=== PATIENT | male | born 1950 | race Caucasian/White ===

== ENCOUNTER → 2017-03-29 | Outpatient (CLI) | payer MEDICARE ==
--- NOTE | 2017-03-29 16:23 | KCIC ---
MRI Cervical Spine Without Contrast History: Cervical radiculopathy on the left, left-sided arm weakness and numbness since November Technique: Multiplanar, multi sequential noncontrast MR imaging was performed of the cervical spine. Comparison: None Findings: There is motion degradation, limits accurate evaluation of the neural foramina. There is mild superior height loss at C5 and very mild generalized height loss of C6 not associated with significant marrow edema. There is straightening of the cervical spine with very mild reversal of the lordotic curvature centered at C5-C6. Cervical cord caliber is within normal limits without focal signal abnormality allowing for artifact. There is moderate to severe degenerative disc disease greater anteriorly at C5-C6, to a somewhat lesser degree at C6-7. There is negligible posterior subluxation of C5 relative to C6. C2-C3: There is mild left uncovertebral and facet degenerative change with resultant moderate narrowing of the left neural foramen. Spinal canal and right neural foramen are adequate. C3-C4: There is minimal disc osteophyte complex and bulge. Central canal is borderline 10 mm. There is mild facet degenerative change, also mild left uncovertebral degenerative change. There is likely moderate to severe narrowing of the left neural foramen, right neural foramen not significantly narrowed. C4-C5: There is very minimal posterior bulge. Central canal is borderline 10 mm. There is moderate to severe right facet degenerative change. The left neural foramen is overall adequate, likely at least moderate narrowing of the right neural foramen. C5-C6: There is minimal disc osteophyte complex. Central canal is borderline 10 mm. There is moderate bilateral facet degenerative change. There is uncovertebral degenerative change greater on the right. There is likely moderate to severe neural foramina compromise bilaterally. C6-C7: There is minimal disc osteophyte complex and bulge. Central canal is borderline 10 mm. There is uncovertebral degenerative change. There is likely moderate to severe left greater than right neural foramina compromise. C7-T1: Spinal canal is adequate. There is facet degenerative change. Right neural foramen is not obviously narrowed, likely at least mild posterior narrowing of the left neural foramen. Impression: 1. Exam is degraded by motion which limits accurate evaluation of the neural foramina. 2. There is no significant cervical spinal stenosis, multilevel borderline narrowing. 3. There is suspected multilevel cervical neural foramina compromise due to facet and uncovertebral degenerative change greatest on the left at C3-4 and bilaterally at C5-C6 and C6-7, to a lesser degree on the right C4-5 and on the left at C2-3. 4. There is degenerative disc disease greatest at C5-C6 and C6-7, spondylosis at the same levels. Electronically signed by: Thiago Poon MD (03/29/2017 4:19 PM) [id number]
== END | disposition home or self-care (01) ==
LOC: KCIC MRI 15:15
PROVIDERS: ATTEND Family Medicine
DX: M50.123 Cervical disc disorder at C6-C7 level with radiculopathy (principal); M50.122 Cervical disc disorder at C5-C6 level with radiculopathy; M50.121 Cervical disc disorder at C4-C5 level with radiculopathy; M47.892 Other spondylosis, cervical region
CPT/HCPCS: 72141

== ENCOUNTER → 2017-05-19 | Outpatient (CLI) | payer MEDICARE ==
[~2017-05-19] MED LIST: HYDR12.58 PO; IOHEXOL 300 MG/ML 100ML VIAL. IV ONE
--- NOTE | 2017-05-19 10:14 | KCIC ---
MRI Brain without contrast History: TIA, left-sided facial numbness, numbness in left upper extremity, symptoms off and on in recent months Technique: Multiplanar, multisequential noncontrast MR imaging was performed of the brain. Contrast: None Comparison: None Findings: There is mild motion.There is no evidence of an acute infarct or cytotoxic edema. The ventricles, sulci, and cisterns are within normal limits in size and configuration. There is no significant midline shift, mass effect, or focal abnormal extra-axial fluid collection. There is very minimal T2 and FLAIR hyperintense abnormality of the supratentorial periventricular white matter, also some foci of the deep white matter such as of the left powell radiata and left parietal lobe and minimally of the right frontal lobe. There is also focus of mild FLAIR hyperintense signal along the right parietal cortical surface with associated questionable volume loss. There is preservation of the major intracranial flow-voids at the skull base. The mastoid air cells are aerated. The cerebellar tonsils are at the lower limits of normal in location. There is no significant abnormality of the pineal gland or pituitary gland. There is mild bilateral ethmoid air cell mucosal thickening. There is preserved marrow signal of the clivus. Impression: 1. There is no evidence of recent infarct or intracranial mass effect. Minimal T2 and FLAIR hyperintense signal abnormality of the supratentorial white matter is nonspecific, could be due to chronic microvascular ischemic disease. There is a questionable focus of FLAIR hyperintense signal along the right parietal cortical surface, difficult to characterize, some questionable volume loss possibly related to sequela of tiny old infarct. Electronically signed by: Thiago Poon MD (05/19/2017 10:11 AM) [facility]
--- NOTE | 2017-05-19 12:50 | KCIC ---
CTA head and neck History: TIA, left-sided facial numbness, numbness in left upper extremity, symptoms for about 3 months Technique: Noncontrast head CT was performed in correlation with this exam. After bolus of intravenous contrast, volumetric CT data acquisition was acquired of the head and neck. Multiplanar reconstruction images to include MIP and 3-D reconstruction images are submitted. Exposure: One or more of the following individualized dose reduction techniques were utilized for this examination: 1. Automated exposure control 2. Adjustment of the mA and/or kV according to patient size 3. Use of iterative reconstruction technique. Contrast: 95 cc Omnipaque 300 Comparison: None Any determination of stenosis is based on NASCET criteria. CTA head: Findings: There is motion degradation. There is no evidence of acute intracranial hemorrhage, intra-axial mass effect, midline shift. Both vertebral arteries constitute the basilar artery, dominant left vertebral artery. There is visualization of left PICA, not seen on the right. There is visualization of small right AICA, not seen on the left. No significant posterior communicating arteries are visualized. There is probably small anterior communicating artery. There is visualization of the petrous, cavernous, and supraclinoid internal carotid arteries bilaterally. No aneurysm or arteriovenous malformation is identified. Impression: 1. Other visualized intracranial vasculature, no aneurysm or significant stenosis is identified. Right PICA and left AICA are not well visualized on this exam. Neck CTA: Findings: Origins and proximal great vessels are poorly evaluated due to artifact from patient's shoulders. There is also motion degradation. The visualized left common and internal carotid arteries are patent without significant stenosis. There is calcified and noncalcified plaque of the proximal right internal carotid artery with resultant stenosis which is significant on the order of at least 75% luminal diameter reduction. There is multilevel cervical degenerative disc disease, also multilevel cervical facet degenerative change. Impression: 1. Calcified and noncalcified plaque of the proximal right internal carotid artery results in significant stenosis on the order of at least 75% luminal diameter reduction. 2. Proximal great vessels and origins are not accurately evaluated on this exam. Electronically signed by: Thiago Poon MD (05/19/2017 12:46 PM) [facility]
== END | disposition home or self-care (01) ==
LOC: KCIC MRI 09:02
PROVIDERS: ATTEND Neurological Surgery
DX: G45.9 Transient cerebral ischemic attack, unspecified (principal); M50.30 Other cervical disc degeneration, unspecified cervical region; F50.89 Other specified eating disorder
CPT/HCPCS: 70496; 70498; 70551; 82565; Q9967

== ENCOUNTER → 2020-07-09 | Outpatient (CLI) | payer MEDICARE ==
[~2020-07-09] MED LIST changes: -IOHEXOL 300 MG/ML 100ML VIAL. IV ONE
--- NOTE | 2020-07-09 12:45 | CARD ---
MR#: [id number] Date of Study: 07/09/2020 Ordering Physician: ARTI FRANCO, Referring Physician: ARTI FRANCO, Tech: Adali Camejo PATRICIA APPROVED REPORT EXAM: Two-dimensional and M-mode echocardiogram with Doppler and color Doppler. Other Information Quality : Good INDICATION Cardiac Disease: CAD 2D DIMENSIONS RVDd2.6 (2.9-3.5cm)Left Atrium(2D)3.4 (1.6-4.0cm) IVSd0.8 (0.7-1.1cm)Aortic Root(2D)3.0 (2.0-3.7cm) LVDd5.2 (3.9-5.9cm)LVOT Diameter2.1 (1.8-2.4cm) PWd0.9 (0.7-1.1cm)LVDs3.7 (2.5-4.0cm) FS (%) 29.3 %SV72.6 ml LVEF(%)55.8 (>50%) Aortic Valve AoV Peak Con.183.8cm/sAoV VTI30.2cm AO Peak GR.13.5mmHgLVOT Peak Con.117.8cm/s AO Mean GR.6mmHgAVA (VMAX)2.21cm2 GISELLE (VTI)2.70cm2 Mitral Valve MV E Ghxklauc330.8cm/sMV DECEL [id number] MV A Jkhautlw689.9cm/sE/A Ratio0.9 Pulmonary Valve PV Peak Zpfypafp22.6cm/s Tricuspid Valve TR P. Oyqwtonx307yt/sRAP [id number] TR Peak Gr.57dlZrRGRL13rnNn Pulmonary Vein S1 Jitpbfjm07.8cm/sD2 Pparyoqd59.4cm/s LEFT VENTRICLE The left ventricle is normal size. There is normal left ventricular wall thickness. The left ventricu lar systolic function is normal. The Ejection Fraction is 55-60%. There is normal LV segmental wall m otion. Transmitral Doppler flow pattern is Grade I-abnormal relaxation pattern. RIGHT VENTRICLE The right ventricle is normal size. The right ventricular systolic function is normal. ATRIA The left atrium size is normal. The right atrium size is normal. The interatrial septum is intact wit h no evidence for an atrial septal defect or patent foramen ovale as noted on 2-D or Doppler imaging. AORTIC VALVE The aortic valve is normal in structure and function. Doppler and Color Flow revealed no significant aortic regurgitation. There is no significant aortic valvular stenosis. MITRAL VALVE The mitral valve is calcified but opens well. Mitral annular calcification is mild. There is no evide nce of mitral valve prolapse. There is no mitral valve stenosis. Doppler and Color Flow revealed no m itral valve regurgitation noted. TRICUSPID VALVE The tricuspid valve is normal in structure and function. Doppler and Color Flow revealed trace tricus pid regurgitation. There is mild pulmonary hypertension. The PA pressure was estimated at 36 mmHg. Th ere is no tricuspid valve stenosis. PULMONIC VALVE The pulmonic valve is not well visualized. Doppler and Color Flow revealed trace pulmonic valvular re gurgitation. There is no pulmonic valvular stenosis. GREAT VESSELS The aortic root is normal in size. The ascending aorta is mildly dilated at 3.9 cm. The IVC is normal in size and collapses >50% with inspiration. PERICARDIAL EFFUSION There is no evidence of significant pericardial effusion. Critical Notification Critical Value: No <Conclusion> The left ventricular systolic function is normal. The Ejection Fraction is 55-60%. There is normal LV segmental wall motion. Transmitral Doppler flow pattern is Grade I-abnormal relaxation pattern. Trace tricuspid regurgitation. The PA pressure was estimated at 36 mmHg. There is no evidence of significant pericardial effusion. Signed by : Kvng Hill, Electronically Approved : 07/09/2020 12:44:11
== END ==
LOC: ECHO 10:31
PROVIDERS: ATTEND Family Medicine
DX: I07.1 Rheumatic tricuspid insufficiency (principal); I27.20 Pulmonary hypertension, unspecified
CPT/HCPCS: 93306

== ENCOUNTER → 2020-07-21 | Outpatient (CLI) | payer MEDICARE ==
--- NOTE | 2020-07-21 12:51 | RAD ---
Clinical Indications: Dizziness. Carotid endarterectomy on the right on 2017. Exam : Carotid Duplex with Grayscale Ultrasound and Spectral and Color Doppler Analysis: PQRS Compliance Statement - Stenosis calculations for CT, MR and conventional angiography are based upon measurement of the distal ICA diameter in accordance with the NASCET methodology. Stenosis calculations for carotid ultrasound studies are derived from validated velocity criteria which are known to correlate with the NASCET methodology. Comparison study: CT angiogram of the neck of 05/19/2017. Findings: The common, internal and external carotid arteries were examined by grayscale, color and spectral Doppler ultrasound. There is extensive evidence of atherosclerotic disease but no significant stenosis in the visualized vessels. Flow in both vertebral arteries was antegrade and normal. The following are the velocities and ratios in the carotid arteries on both sides: RIGHT ICA PV: 88cm/sec RIGHT CCA PV: 90cm/sec RIGHT ICA ED: 37cm/sec RIGHT IC/CCPV: 0.86 RIGHT VERTEBRAL: antegrade flow RIGHT % STENOSIS: Less than 50 percent LEFT ICA PV: 87cm/sec LEFT CCA PV: 175cm/sec LEFT ICA ED: 27cm/sec LEFT IC/CCPV: Not estimated. LEFT VERTEBRAL: antegrade flow LEFT % STENOSIS: Less than 50 percent <50% ICA Stenosis: PSV < 125cm/s (EDV < 40cm/s; SVR < 2.0) 50-69% ICA Stenosis: PSV < 125-229cm/s (EDV 40-99cm/s; SVR 2.0-3.9) >70% ICA Stenosis: PSV > 230cm/s (EDV >100cm/s; SVR >4.0) Impression: 1. Bilateral atherosclerotic plaque in the carotid arterial system with at least moderate stenosis in the left proximal common carotid artery 2. The high-grade stenosis in the proximal right cervical ICA is no longer present, likely result of interval endarterectomy. Electronically signed by: Brookylnn Lucia MD (07/21/2020 12:48 PM) [id number]
== END ==
LOC: US 09:30
PROVIDERS: ATTEND Family Medicine
DX: I65.23 Occlusion and stenosis of bilateral carotid arteries (principal); R09.89 Other specified symptoms and signs involving the circulatory and respiratory systems; I10 Essential (primary) hypertension; I25.10 Atherosclerotic heart disease of native coronary artery without angina pectoris
CPT/HCPCS: 93880

== ENCOUNTER 2021-06-05 20:02 | Inpatient (IN) | payer MEDICARE ==
[~2021-06-05] VITALS: Ht 175.3 cm; Wt 84.9 kg
--- NOTE | 2021-06-05 20:29 | PHYS DOC ---
General Adult EDM: Chief Complaint: CHEST PAIN HPI: HPI: Patient is a 70 year old male with a past medical history hypertension presents with a chief complaint of chest pain. Patient states chest pain started suddenly approximately 45 minutes prior to arrival while at rest. Patient's pain substernal described as sharp and nonradiating. Patient rates pain an 8 out of 10. He denies any associated shortness of breath nausea or diaphoresis. Patient self treated his pain with 162 mg of aspirin. Patient states pain is improved to a blank out of 10 EKG performed shows no acute MA. Review of Systems: Review of Systems: Constitutional: Denies fever or chills. [] Eyes: Denies change in visual acuity. [] HENT: Denies nasal congestion or sore throat. [] Respiratory: Denies cough or shortness of breath. [] Cardiovascular: Denies chest pain or edema. [] GI: Denies abdominal pain, nausea, vomiting, bloody stools or diarrhea. [] : Denies dysuria. [] Musculoskeletal: Denies back pain or joint pain. [] Integument: Denies rash. [] Neurologic: Denies headache, focal weakness or sensory changes. [] Endocrine: Denies polyuria or polydipsia. [] Lymphatic: Denies swollen glands. [] Psychiatric: Denies depression or anxiety. [] Heart Score: C/O Chest Pain: Yes HEART Score for Chest Pain: HEART Score for Chest Pain Response (Comments) Value History Moderately Suspicious 1 ECG Nonspecific Repolarizatio 1 Age > 65 2 Risk Factors 1 or 2 Risk Factors 1 Troponin < Normal Limit 0 Total 5 Risk Factors: Risk Factors: DM, Current or recent (<one month) smoker, HTN, HLP, family history of CAD, obesity. Risk Scores: Score 0 - 3: 2.5% MACE over next 6 weeks - Discharge Home Score 4 - 6: 20.3% MACE over next 6 weeks - Admit for Clinical Observation Score 7 - 10: 72.7% MACE over next 6 weeks - Early Invasive Strategies Allergies: Allergies: Allergies Coded Allergies Type Severity Reaction Last Updated Verified No Known Drug Allergies 05/19/17 No Physical Exam: PE: Constitutional: Well developed, well nourished, no acute distress, non-toxic appearance. [] HENT: Normocephalic, atraumatic, bilateral external ears normal, oropharynx moist, no oral exudates, nose normal. [] Eyes: PERRLA, EOMI, conjunctiva normal, no discharge. [] Neck: Normal range of motion, no tenderness, supple, no stridor. [] Cardiovascular:Heart rate regular rhythm, no murmur [] Lungs & Thorax: Bilateral breath sounds clear to auscultation [] Abdomen: Bowel sounds normal, soft, no tenderness, no masses, no pulsatile masses. [] Skin: Warm, dry, no erythema, no rash. [] Back: No tenderness, no CVA tenderness. [] Extremities: No tenderness, no cyanosis, no clubbing, ROM intact, no edema. [] Neurologic: Alert and oriented X 3, normal motor function, normal sensory function, no focal deficits noted. [] Psychologic: Affect normal, judgement normal, mood normal. [] EKG: EKG: [] Radiology/Procedures: Radiology/Procedures: [] Impression: Comparisons: None FINDINGS: Heart is mildly enlarged. Pulmonary vessels are within normal limits. Minimal increased interstitial opacities lungs bilaterally. No pleural effusion. IMPRESSION: Minimally increased interstitial opacities can be seen in the setting of mild pulmonary edema or atypical infectious process. Course & Med Decision Making: Course & Med Decision Making Pertinent Labs and Imaging studies reviewed. (See chart for details) []Total ASA 324mg, SL nitro with improvement of pain to 1/10. Admitted to hospitalist with cardiology consult. Jim Disclaimer: Jim Disclaimer: This electronic medical record was generated, in whole or in part, using a voice recognition dictation system. Departure Departure Impression: Primary Impression: Chest pain Disposition: ADMITTED INPATIENT Condition: STABLE Referrals: ARTI FRANCO MD (PCP) MARSHA SON DO Jun 05, 2021 20:29
[2021-06-05 20:34] LABS: BASO # 0.1 x10^3/uL (0.0-0.2); BASO % 1 % (0-3); EOS # 0.1 x10^3/uL (0.0-0.7); EOS % 2 % (0-3); HEMATOCRIT 45.6 % (39.0-53.0); HEMOGLOBIN 15.5 g/dL (13.0-17.5); LYMPH # 2.2 x10^3/uL (1.0-4.8); LYMPH % 30 % (24-48); MEAN CORPUSCULAR HEMOGLOBIN 32 pg (25-35); MEAN CORPUSCULAR HGB CONC 34 g/dL (31-37); MEAN CORPUSCULAR VOLUME 94 fL (79-100); MONO # 1.1 x10^3/uL (0.0-1.1); MONO % 15 % (0-9); NEUT # 3.9 x10^3/uL (1.8-7.7); NEUT % 52 % (31-73); PLATELET COUNT 304 x10^3/uL (140-400); RED BLOOD COUNT 4.85 x10^6/uL (4.30-5.70); WHITE BLOOD COUNT 7.5 x10^3/uL (4.0-11.0)
[2021-06-05 20:41] LABS: CALCIUM 9.1 mg/dL (8.5-10.1); GFR 74.1; POTASSIUM 3.7 mmol/L (3.5-5.1)
[2021-06-05 20:46] LABS: ALBUMIN/GLOBULIN RATIO 1.1 (1.0-1.7); TOTAL BILIRUBIN 0.4 mg/dL (0.2-1.0); TOTAL PROTEIN 7.5 g/dL (6.4-8.2)
--- NOTE | 2021-06-05 20:51 | RAD ---
Exam: Chest one view INDICATION: Chest pain TECHNIQUE: Frontal view of the chest Comparisons: None FINDINGS: Heart is mildly enlarged. Pulmonary vessels are within normal limits. Minimal increased interstitial opacities lungs bilaterally. No pleural effusion. IMPRESSION: Minimally increased interstitial opacities can be seen in the setting of mild pulmonary edema or atyp ical infectious process. Electronically signed by: Tony Rashid MD (06/05/2021 8:48 PM) [id number]
[2021-06-05] MEDS ORDERED: ASPIRIN CHEWABLE 81 MG TABLET. PO ONE (21:00)
[2021-06-05] MEDS ORDERED: NITROGLYCERIN SUBLINGUAL 0.4 MG BOTTLE OF 25. SL PRN ×2 (21:00→22:00)
[2021-06-05] MEDS ORDERED: MORPHINE SULFATE 2 MG/ML INJ. IVP PRN (22:00)
[2021-06-05] MEDS ORDERED: ONDANSETRON PF 4 MG/2 ML VIAL. IVP PRN (22:00)
[2021-06-05 23:27] VITALS: BP 191/100
[2021-06-06] VITALS (7 sets, daily range): BP systolic 140–196; BP diastolic 81–99
[2021-06-06] MEDS ORDERED: HEPARIN for IV BOLUS 10,000 UNIT/10 ML VIAL. IV PRN (01:45)
[2021-06-06] MEDS: HEPARIN 25,000UTS/250ML PREMIX 250 ML IV PRN ×2 (02:42→21:52)
[2021-06-06] MEDS: ANTI-COAG MONITOR BY PHARMACY. MC PRN (03:38)
[2021-06-06] MEDS ORDERED: LISI2.5T12 PO (05:38)
[2021-06-06] MEDS ORDERED: ASPI-630 PO (05:38)
[2021-06-06] MEDS ORDERED: DOCO1CAP2 PO (05:38)
[2021-06-06] MEDS ORDERED: NIAC500C6 PO (05:38)
[2021-06-06] MEDS ORDERED: BIFI4CAP PO (05:38)
[2021-06-06] MEDS ORDERED: MULT-114 PO (05:38)
[2021-06-06] MEDS: OMEGA-3 FATTY ACIDS/FISH OIL 1,000 MG CAPSULE. PO SCH (12:30)
[2021-06-06] MEDS: hydroCHLOROthiazide 12.5 MG CAPSULE PO SCH (12:30)
[2021-06-06] MEDS: MULTIVITAMIN with MINERAL TABLET. PO SCH (12:30)
[2021-06-06] MEDS: LISINOPRIL 5 MG TABLET. PO SCH (12:32)
--- NOTE | 2021-06-06 12:38 | HP ---
ADMIT DATE: 06/06/2021 CHIEF COMPLAINT: Chest pain. HISTORY OF PRESENT ILLNESS: The patient is a pleasant middle-aged male who presented to the ER with chest pain, rates it 10, it has been occurring for several days. Moving makes it worse, sitting still makes it better. He took some aspirin that did not help much. I discussed the case with ER physician. We have admitted the patient, we have consulted Cardiology. The patient's troponin is now bumped up from 0.02 to 6.2 this morning. He appears to have had an acute myocardial infarction. We will have him on a heparin drip. We are awaiting Cardiology input. PAST MEDICAL HISTORY: Hypertension, hyperlipidemia. ALLERGIES: SULFA. FAMILY HISTORY: He denies coronary disease in his family. SOCIAL HISTORY: He does not drink, smoke or take drugs. MEDICATIONS: Reviewed, please refer to MRAD. He is on niacin, lisinopril, aspirin, hydrochlorothiazide, fish oil, vitamins and algin. REVIEW OF SYSTEMS: GENERAL: No history of weight change, weakness or fevers. SKIN: No bruising, hair changes or rashes. EYES: No blurred, double or loss of vision. NOSE AND THROAT: No history of nosebleeds, hoarseness or sore throat. HEART: He complains of chest pain. LUNGS: Denies cough, hemoptysis, wheezing or shortness of breath. GASTROINTESTINAL: Denies changes in appetite, nausea, vomiting, diarrhea or constipation. GENITOURINARY: No history of frequency, urgency, hesitancy or nocturia. NEUROLOGIC: Denies history of numbness, tingling, tremor or weakness. PSYCHIATRIC: No history of panic, anxiety or depression. ENDOCRINE: No history of heat or cold intolerance, polyuria or polydipsia. EXTREMITIES: Denies muscle weakness, joint pain, pain on walking or stiffness. PHYSICAL EXAMINATION: VITALS: Within normal limits and are stable. GENERAL: No apparent distress. Alert and oriented. HEENT: Normal cephalic atraumatic, external auditory canals are patent EYES: Extraocular muscles are intact, pupils are equally round and reactive to light and accommodation MUSKULOSKELETAL: Well developed, well nourished, good range of motion ENDOCRINE: No thyromegaly was palpated LYMPHATICS: No cervical chain or axillary nodes were noted HEMATOPOIETIC: No bruising NECK: Supple, no JVD, no thyromegaly was noted. LUNGS: Clear to auscultation in all lung degroot without rhonchi or wheezing. HEART: RRR, S1, S2 present. Peripheral pulses intact, no obvious murmurs were noted. ABDOMEN: Soft, nontender. Positive bowel sounds no organomegaly, normal bowel sounds. EXTREMITIES: Without any cyanosis, clubbing, or edema. Pedal pulses intact, Homans sign is negative. NEUROLOGIC: Normal speech, normal tone. A and O x 3, moves all extremities, no obvious focal deficits. PSYCHIATRIC: Normal affect, normal mood. Stable. SKIN: No ulcerations or rashes, good skin turgor, no jaundice. VASCULAR: Good capillary refill, neurovascular bundle appears to be intact. Troponin is 6.1. ASSESSMENT AND PLAN: Probable acute myocardial infarction. The patient has been admitted on a heparin drip. We have consultied Cardiology. Suspect he might need to go to the cath lab tech. We will await Cardiology's input. For now, cardiac monitoring. Continue serial enzymes, serial EKGs and heparin drip and p.r.n. nitro. Prognosis guarded. We will keep him n.p.o. CC TIME: 32 minutes. MONICA/JAQUI DR: Josefa TID: [id number]
[2021-06-06] MEDS ORDERED: CLOPIDOGREL BISULFATE 75 MG TABLET PO ONE (16:15)
--- NOTE | 2021-06-06 16:15 | PDOC2 ---
CONSULT Date of Consult Date of Consult DATE: 06/06/21 TIME: 16:08 Reason for Consult Reason for Consult: Chest pain Referring Physician Referring Physician: Dr. Agarwal Identification/Chief Complaint Chief Complaint Chest pain Source Source: Chart review, Patient History of Present Illness Reason for Visit: The patient is a 70-year-old male to the emergency room room last evening for new onset of chest pain at rest. The patient's initial EKG showed no acute ST segment elevation but did show mild nonspecific ST-T wave changes. Initial troponin was 0.022. Chest x-ray showed minimal increased interstitial findings and mild cardiomegaly. The patient's second troponin was mildly elevated at than it peaked at 6.166 but now has decreased to 4.836. Patient was treated with aspirin and IV heparin overnight and he has had no recurrent pain from his initial pain in the emergency room. He does have a history of hypertension and probable hyperlipidemia. He denies any previous history of coronary disease or heart failure. He does have a family history of early coronary disease. He is a non-smoker and does not use alcohol. Past Medical History Cardiovascular: HTN, Hyperlipidemia, Other (Carotid artery disease) Past Surgical History Past Surgical History: Other (Carotid endarterectomy by Dr. Rojas in 2018. ) Family History Family History: Coronary Artery Disease Social History No ALCOHOL: none Current Problem List Problem List Problems Medical Problems: (1) Chest pain Status: Acute Current Medications Current Medications Current Medications Aspirin (Aspirin Chewable) 162 mg 1X ONCE PO Last administered on 06/05/21at 20:57; Start 06/05/21 at 21:00; Stop 06/05/21 at 21:01; Status DC Nitroglycerin (Nitrostat) 0.4 mg PRN Q5MIN PRN SL CHEST PAIN Last administered on 06/05/21at 20:57; Start 06/05/21 at 21:00; Stop 06/05/21 at 21:56; Status DC Ondansetron HCl (Zofran) 4 mg PRN Q8HRS PRN IVP NAUSEA/VOMITING 1ST CHOICE; Start 06/05/21 at 22:00; Stop 06/06/21 at 21:59 Morphine Sulfate (Morphine Sulfate) 2 mg PRN Q2HR PRN IVP SEVERE PAIN 7-10; Start 06/05/21 at 22:00; Stop 06/06/21 at 21:59 Nitroglycerin (Nitrostat) 0.4 mg PRN Q5MIN PRN SL CHEST PAIN; Start 06/05/21 at 22:00; Stop 06/06/21 at 21:59 Heparin Sodium/ Dextrose 250 ml @ 0 mls/hr CONT PRN IV PER PROTOCOL Last administered on 06/06/21at 02:42; Start 06/06/21 at 01:45 Heparin Sodium (Porcine) (Heparin Sodium) 2,200 unit PRN Q6HRS PRN IV FOR UFH LEVEL LESS THAN 0.2 Last administered on 06/06/21at 09:48; Start 06/06/21 at 01:45 Info (Anti-Coagulation Monitoring By Pharmacy) 1 each PRN DAILY PRN MC PER PROTOCOL Last administered on 06/06/21at 03:38; Start 06/06/21 at 02:00 Aspirin (Aspirin Chewable) 81 mg HS PO ; Start 06/06/21 at 21:00 Lactobacillus Rhamnosus (Culturelle) 1 cap DAILY PO ; Start 06/07/21 at 09:00 Fish Oil (Fish Oil) 1,000 mg DAILY PO Last administered on 06/06/21at 12:30; Start 06/06/21 at 13:00 Hydrochlorothiazide (Microzide) 12.5 mg DAILY PO Last administered on 06/06/21at 12:30; Start 06/06/21 at 13:00 Lisinopril (Prinivil) 2.5 mg DAILY PO Last administered on 06/06/21at 12:32; Start 06/06/21 at 13:00 Multivitamins (Thera M Plus) 1 tab DAILY PO Last administered on 06/06/21at 12:30; Start 06/06/21 at 13:00 Niacin (Niaspan) 500 mg QHS PO ; Start 06/06/21 at 21:00 Active Scripts Active Reported Multivitamins With Minerals (Multivitamin With Minerals) 1 Each Tablet 1 Tab PO DAILY 30 Days Aspirin 81 Mg Tab.chew 1 Tab PO HS Niacin 500 Mg Capsule (Niacin (Inositol Niacinate)) 500 Mg Capsule 1 Cap PO DAILY 30 Days Fish Oil Concentrate Softgel (Docosahexanoic Acid/Epa) 1 Each Capsule 1 Cap PO DAILY 30 Days Align (Bifidobacterium Infantis) 4 Mg Capsule 1 Cap PO DAILY 30 Days Lisinopril 2.5 Mg Tablet 1 Tab PO DAILY Hydrochlorothiazide Tablet (Hydrochlorothiazide) 12.5 Mg Tablet 1 Tab PO DAILY Allergies Allergies: Coded Allergies: Sulfa (Sulfonamide Antibiotics) (Verified Allergy, Intermediate, 06/05/21) ROS Cardiovascular: yes Chest Pain Physical Exam General: No acute distress HEENT: Atraumatic Lungs: Clear to auscultation Heart: Regular rate Abdomen: Normal bowel sounds Vitals VITALS Vital Signs Date Time Temp Pulse Resp B/P (MAP) Pulse Ox O2 Delivery O2 Flow Rate FiO2 06/06/21 14:37 97.8 72 20 144/85 (104) 96 Room Air 97.8 Labs Labs Laboratory Tests Test 06/05/21 20:24 06/06/21 00:20 06/06/21 08:30 06/06/21 12:35 White Blood Count 7.5 x10^3/uL (4.0-11.0) Red Blood Count 4.85 x10^6/uL (4.30-5.70) Hemoglobin 15.5 g/dL (13.0-17.5) Hematocrit 45.6 % (39.0-53.0) Mean Corpuscular Volume 94 fL (79-100) Mean Corpuscular Hemoglobin 32 pg (25-35) Mean Corpuscular Hemoglobin Concent 34 g/dL (31-37) Red Cell Distribution Width 13.0 % (11.5-14.5) Platelet Count 304 x10^3/uL (140-400) Neutrophils (%) (Auto) 52 % (31-73) Lymphocytes (%) (Auto) 30 % (24-48) Monocytes (%) (Auto) 15 % (0-9) Eosinophils (%) (Auto) 2 % (0-3) Basophils (%) (Auto) 1 % (0-3) Neutrophils # (Auto) 3.9 x10^3/uL (1.8-7.7) Lymphocytes # (Auto) 2.2 x10^3/uL (1.0-4.8) Monocytes # (Auto) 1.1 x10^3/uL (0.0-1.1) Eosinophils # (Auto) 0.1 x10^3/uL (0.0-0.7) Basophils # (Auto) 0.1 x10^3/uL (0.0-0.2) Sodium Level 140 mmol/L (136-145) Potassium Level 3.7 mmol/L (3.5-5.1) Chloride Level 102 mmol/L (98-107) Carbon Dioxide Level 30 mmol/L (21-32) Anion Gap 8 (6-14) Blood Urea Nitrogen 25 mg/dL (8-26) Creatinine 1.0 mg/dL (0.7-1.3) Estimated GFR (Cockcroft-Gault) 74.1 BUN/Creatinine Ratio 25 (6-20) Glucose Level 114 mg/dL (70-99) Calcium Level 9.1 mg/dL (8.5-10.1) Total Bilirubin 0.4 mg/dL (0.2-1.0) Aspartate Amino Transf (AST/SGOT) 28 U/L (15-37) Alanine Aminotransferase (ALT/SGPT) 51 U/L (16-63) Alkaline Phosphatase 79 U/L (46-116) Troponin I Quantitative 0.022 ng/mL (0.000-0.055) 1.416 ng/mL (0.000-0.055) 6.166 ng/mL (0.000-0.055) 4.836 ng/mL (0.000-0.055) AW-Cfn-S-Type Natriuretic Peptide 33 pg/mL (0-124) Total Protein 7.5 g/dL (6.4-8.2) Albumin 4.0 g/dL (3.4-5.0) Albumin/Globulin Ratio 1.1 (1.0-1.7) Heparin Anti-Xa Act, Unfractionated 0.14 IU/mL (0.30-0.70) Laboratory Tests Test 06/05/21 20:24 06/06/21 00:20 06/06/21 08:30 06/06/21 12:35 White Blood Count 7.5 x10^3/uL (4.0-11.0) Red Blood Count 4.85 x10^6/uL (4.30-5.70) Hemoglobin 15.5 g/dL (13.0-17.5) Hematocrit 45.6 % (39.0-53.0) Mean Corpuscular Volume 94 fL (79-100) Mean Corpuscular Hemoglobin 32 pg (25-35) Mean Corpuscular Hemoglobin Concent 34 g/dL (31-37) Red Cell Distribution Width 13.0 % (11.5-14.5) Platelet Count 304 x10^3/uL (140-400) Neutrophils (%) (Auto) 52 % (31-73) Lymphocytes (%) (Auto) 30 % (24-48) Monocytes (%) (Auto) 15 % (0-9) Eosinophils (%) (Auto) 2 % (0-3) Basophils (%) (Auto) 1 % (0-3) Neutrophils # (Auto) 3.9 x10^3/uL (1.8-7.7) Lymphocytes # (Auto) 2.2 x10^3/uL (1.0-4.8) Monocytes # (Auto) 1.1 x10^3/uL (0.0-1.1) Eosinophils # (Auto) 0.1 x10^3/uL (0.0-0.7) Basophils # (Auto) 0.1 x10^3/uL (0.0-0.2) Sodium Level 140 mmol/L (136-145) Potassium Level 3.7 mmol/L (3.5-5.1) Chloride Level 102 mmol/L (98-107) Carbon Dioxide Level 30 mmol/L (21-32) Anion Gap 8 (6-14) Blood Urea Nitrogen 25 mg/dL (8-26) Creatinine 1.0 mg/dL (0.7-1.3) Estimated GFR (Cockcroft-Gault) 74.1 BUN/Creatinine Ratio 25 (6-20) Glucose Level 114 mg/dL (70-99) Calcium Level 9.1 mg/dL (8.5-10.1) Total Bilirubin 0.4 mg/dL (0.2-1.0) Aspartate Amino Transf (AST/SGOT) 28 U/L (15-37) Alanine Aminotransferase (ALT/SGPT) 51 U/L (16-63) Alkaline Phosphatase 79 U/L (46-116) Troponin I Quantitative 0.022 ng/mL (0.000-0.055) 1.416 ng/mL (0.000-0.055) 6.166 ng/mL (0.000-0.055) 4.836 ng/mL (0.000-0.055) TC-Hoy-V-Type Natriuretic Peptide 33 pg/mL (0-124) Total Protein 7.5 g/dL (6.4-8.2) Albumin 4.0 g/dL (3.4-5.0) Albumin/Globulin Ratio 1.1 (1.0-1.7) Heparin Anti-Xa Act, Unfractionated 0.14 IU/mL (0.30-0.70) Images Images Chest x-ray as above. Assessment/Plan Assessment/Plan 1. Non-ST elevated myocardial infarction. Peak troponin of 6.166 and now declining. Patient has been pain-free since his initial event. We will continue on aspirin and heparin. Will initiate beta-blockers, Plavix and statins. In the setting of his cardiomegaly on chest x-ray we will check an echocardiogram tomorrow and plan on cardiac catheterization Tuesday morning if the patient remains pain-free. This plan was discussed with the patient and his family. 2. Hypertension. Continue present medications and monitor. 3. Hyperlipidemia. We will continue present treatments. Will check lab. 4. History of a carotid endarterectomy in 2018. We will check a carotid ultrasound on Tuesday. MOY POWER MD Jun 06, 2021 16:15
[2021-06-06] MEDS: ASPIRIN CHEWABLE 81 MG TABLET. PO SCH (21:05)
[2021-06-06] MEDS: NIACIN ER 250 MG CAPSULE.ER PO SCH (21:05)
[2021-06-06] MEDS: METOPROLOL TART IMMED RELEASE 25 MG TABLET. PO SCH (21:06)
--- NOTE | 2021-06-07 02:28 | EKG ---
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
[2021-06-07 02:47] VITALS: BP 140/80
[2021-06-07 04:53] LABS: HEMATOCRIT 43.8 % (39.0-53.0); RED BLOOD COUNT 4.68 x10^6/uL (4.30-5.70); RED CELL DISTRIBUTION WIDTH 13.3 % (11.5-14.5)
[2021-06-07 05:14] LABS: CALCIUM 8.5 mg/dL (8.5-10.1); CREATININE 0.9 mg/dL (0.7-1.3); GFR 83.7; POTASSIUM 3.8 mmol/L (3.5-5.1)
[2021-06-07 05:18] LABS: CHOLESTEROL/HDL RATIO 4.2
[2021-06-07 07:45] VITALS: BP 142/80
[2021-06-07] MEDS: MULTIVITAMIN with MINERAL TABLET. PO SCH (07:59)
[2021-06-07] MEDS: LISINOPRIL 5 MG TABLET. PO SCH (08:00)
[2021-06-07] MEDS: LACTOBACILLUS RHAMNOSUS GG 1 CAPSULE. PO SCH (08:00)
[2021-06-07] MEDS: OMEGA-3 FATTY ACIDS/FISH OIL 1,000 MG CAPSULE. PO SCH (08:00)
[2021-06-07] MEDS: hydroCHLOROthiazide 12.5 MG CAPSULE PO SCH (08:00)
[2021-06-07] MEDS: METOPROLOL TART IMMED RELEASE 25 MG TABLET. PO SCH ×2 (09:00→21:26)
[2021-06-07] MEDS: HEPARIN 25,000UTS/250ML PREMIX 250 ML IV PRN (10:41)
[2021-06-07 10:46] VITALS: BP 126/74
--- NOTE | 2021-06-07 12:09 | PDOC ---
[employer] PROGRESS NOTE Date of Service DOS: DATE: 06/07/21 TIME: 12:08 Chief Complaint Chief Complaint Chest pain NSTEMI Carotid Artery Disease HTN HLD History of Present Illness History of Present Illness 06/07/2021: Pt seen and examined. Discussed with RN. Chart reviewed. Pt resting, NAD. EKG tracing shows inverted T-waves. Per nurse, pt has not had CP today. Vitals/I&O Vitals/I&O: Vital Signs Date Time Temp Pulse Resp B/P (MAP) Pulse Ox O2 Delivery O2 Flow Rate FiO2 06/07/21 10:46 98.3 62 20 126/74 (91) 95 Room Air 98.3 I & O 06/06/21 06/06/21 06/07/21 15:00 23:00 07:00 Intake Total 120 ml 550 ml 0 ml Balance 120 ml 550 ml 0 ml Physical Exam General: No acute distress Heart: Regular rate Abdomen: Normal bowel sounds Extremities: No clubbing Skin: No rashes Labs Labs: Laboratory Tests Test 06/06/21 12:35 06/06/21 16:04 06/06/21 22:35 06/07/21 04:35 Troponin I Quantitative 4.836 ng/mL (0.000-0.055) Heparin Anti-Xa Act, Unfractionated 0.56 IU/mL (0.30-0.70) 0.44 IU/mL (0.30-0.70) 0.49 IU/mL (0.30-0.70) White Blood Count 6.0 x10^3/uL (4.0-11.0) Red Blood Count 4.68 x10^6/uL (4.30-5.70) Hemoglobin 15.0 g/dL (13.0-17.5) Hematocrit 43.8 % (39.0-53.0) Mean Corpuscular Volume 94 fL (79-100) Mean Corpuscular Hemoglobin 32 pg (25-35) Mean Corpuscular Hemoglobin Concent 34 g/dL (31-37) Red Cell Distribution Width 13.3 % (11.5-14.5) Platelet Count 264 x10^3/uL (140-400) Sodium Level 140 mmol/L (136-145) Potassium Level 3.8 mmol/L (3.5-5.1) Chloride Level 104 mmol/L (98-107) Carbon Dioxide Level 29 mmol/L (21-32) Anion Gap 7 (6-14) Blood Urea Nitrogen 15 mg/dL (8-26) Creatinine 0.9 mg/dL (0.7-1.3) Estimated GFR (Cockcroft-Gault) 83.7 Glucose Level 109 mg/dL (70-99) Calcium Level 8.5 mg/dL (8.5-10.1) Triglycerides Level 103 mg/dL (0-150) Cholesterol Level 183 mg/dL (0-200) LDL Cholesterol, Calculated 118 mg/dL (0-100) VLDL Cholesterol, Calculated 21 mg/dL (0-40) Non-HDL Cholesterol Calculated 139 mg/dL (0-129) HDL Cholesterol 44 mg/dL (40-60) Cholesterol/HDL Ratio 4.2 Assessment and Plan Assessmemt and Plan Problems Medical Problems: (1) Chest pain Status: Acute Chest pain NSTEMI Carotid Artery Disease HTN HLD Plan: Going for cardiac cath in a.m. Continue IV heparin Cardiac monitoring Appreciate subspecialty input (Cardiology) DVT prophylaxis Home meds Trend labs Full code Comment Review of Relevant I have reviewed the following items sagar (where applicable) has been applied. Medications: Current Medications Medications (Trade) Dose Ordered Sig/Josh Route PRN Reason Start Time Stop Time Status Last Admin Dose Admin Aspirin (Aspirin Chewable) 81 mg HS PO 06/06/21 21:00 06/06/21 21:05 Lactobacillus Rhamnosus (Culturelle) 1 cap DAILY PO 06/07/21 09:00 06/07/21 08:00 Fish Oil (Fish Oil) 1,000 mg DAILY PO 06/06/21 13:00 06/07/21 08:00 Hydrochlorothiazide (Microzide) 12.5 mg DAILY PO 06/06/21 13:00 06/07/21 08:00 Lisinopril (Prinivil) 2.5 mg DAILY PO 06/06/21 13:00 06/07/21 08:00 Multivitamins (Thera M Plus) 1 tab DAILY PO 06/06/21 13:00 06/07/21 07:59 Niacin (Niaspan) 500 mg QHS PO 06/06/21 21:00 06/06/21 21:05 Metoprolol Tartrate (Lopressor) 25 mg BID PO 06/06/21 21:00 06/07/21 09:00 Clopidogrel Bisulfate (Plavix) 300 mg 1X ONCE PO 06/06/21 16:15 06/06/21 16:21 DC 06/06/21 16:42 Justifications for Admission Other Justification RODERICK WORLEY III DO Jun 07, 2021 12:09
--- NOTE | 2021-06-07 13:32 | PDOC ---
PROGRESS NOTES Date of Service DATE: 06/07/21 TIME: 13:30 Subjective Subjective Patient seen and examined Objective Objective Vital Signs Date Time Temp Pulse Resp B/P (MAP) Pulse Ox O2 Delivery O2 Flow Rate FiO2 06/07/21 10:46 98.3 62 20 126/74 (91) 95 Room Air 98.3 Intake and Output 06/07/21 07:00 Intake Total 670 ml Balance 670 ml Intake Oral 420 ml IV Total 250 ml # Voids 3 Physical Exam Abdomen: Normal bowel sounds Heart: Regular rate General: No acute distress Lungs: Clear to auscultation Assessment Assessment Problems Medical Problems: (1) Chest pain Status: Acute 1. Non-ST elevated myocardial infarction. Peak troponin of 6.166 and has been declining. Patient has been pain-free since his initial event. We will continue on present medical treatment including aspirin, IV heparin, beta-blockers and statins. Echocardiogram today. Catheterization tomorrow. 2. Hypertension. Continue present medications and monitor. 3. Hyperlipidemia. We will continue present treatments. 4. History of a carotid endarterectomy in 2018. We will check a carotid ultrasound on Tuesday. Comment Review of Relevant I have reviewed the following items sagar (where applicable) has been applied. Labs Laboratory Tests Test 06/05/21 20:24 06/06/21 00:20 06/06/21 08:30 06/06/21 12:35 White Blood Count 7.5 x10^3/uL (4.0-11.0) Red Blood Count 4.85 x10^6/uL (4.30-5.70) Hemoglobin 15.5 g/dL (13.0-17.5) Hematocrit 45.6 % (39.0-53.0) Mean Corpuscular Volume 94 fL (79-100) Mean Corpuscular Hemoglobin 32 pg (25-35) Mean Corpuscular Hemoglobin Concent 34 g/dL (31-37) Red Cell Distribution Width 13.0 % (11.5-14.5) Platelet Count 304 x10^3/uL (140-400) Neutrophils (%) (Auto) 52 % (31-73) Lymphocytes (%) (Auto) 30 % (24-48) Monocytes (%) (Auto) 15 % (0-9) Eosinophils (%) (Auto) 2 % (0-3) Basophils (%) (Auto) 1 % (0-3) Neutrophils # (Auto) 3.9 x10^3/uL (1.8-7.7) Lymphocytes # (Auto) 2.2 x10^3/uL (1.0-4.8) Monocytes # (Auto) 1.1 x10^3/uL (0.0-1.1) Eosinophils # (Auto) 0.1 x10^3/uL (0.0-0.7) Basophils # (Auto) 0.1 x10^3/uL (0.0-0.2) Sodium Level 140 mmol/L (136-145) Potassium Level 3.7 mmol/L (3.5-5.1) Chloride Level 102 mmol/L (98-107) Carbon Dioxide Level 30 mmol/L (21-32) Anion Gap 8 (6-14) Blood Urea Nitrogen 25 mg/dL (8-26) Creatinine 1.0 mg/dL (0.7-1.3) Estimated GFR (Cockcroft-Gault) 74.1 BUN/Creatinine Ratio 25 (6-20) Glucose Level 114 mg/dL (70-99) Calcium Level 9.1 mg/dL (8.5-10.1) Total Bilirubin 0.4 mg/dL (0.2-1.0) Aspartate Amino Transf (AST/SGOT) 28 U/L (15-37) Alanine Aminotransferase (ALT/SGPT) 51 U/L (16-63) Alkaline Phosphatase 79 U/L (46-116) Troponin I Quantitative 0.022 ng/mL (0.000-0.055) 1.416 ng/mL (0.000-0.055) 6.166 ng/mL (0.000-0.055) 4.836 ng/mL (0.000-0.055) NC-Jty-H-Type Natriuretic Peptide 33 pg/mL (0-124) Total Protein 7.5 g/dL (6.4-8.2) Albumin 4.0 g/dL (3.4-5.0) Albumin/Globulin Ratio 1.1 (1.0-1.7) Heparin Anti-Xa Act, Unfractionated 0.14 IU/mL (0.30-0.70) Test 06/06/21 16:04 06/06/21 22:35 06/07/21 04:35 Heparin Anti-Xa Act, Unfractionated 0.56 IU/mL (0.30-0.70) 0.44 IU/mL (0.30-0.70) 0.49 IU/mL (0.30-0.70) White Blood Count 6.0 x10^3/uL (4.0-11.0) Red Blood Count 4.68 x10^6/uL (4.30-5.70) Hemoglobin 15.0 g/dL (13.0-17.5) Hematocrit 43.8 % (39.0-53.0) Mean Corpuscular Volume 94 fL (79-100) Mean Corpuscular Hemoglobin 32 pg (25-35) Mean Corpuscular Hemoglobin Concent 34 g/dL (31-37) Red Cell Distribution Width 13.3 % (11.5-14.5) Platelet Count 264 x10^3/uL (140-400) Sodium Level 140 mmol/L (136-145) Potassium Level 3.8 mmol/L (3.5-5.1) Chloride Level 104 mmol/L (98-107) Carbon Dioxide Level 29 mmol/L (21-32) Anion Gap 7 (6-14) Blood Urea Nitrogen 15 mg/dL (8-26) Creatinine 0.9 mg/dL (0.7-1.3) Estimated GFR (Cockcroft-Gault) 83.7 Glucose Level 109 mg/dL (70-99) Calcium Level 8.5 mg/dL (8.5-10.1) Triglycerides Level 103 mg/dL (0-150) Cholesterol Level 183 mg/dL (0-200) LDL Cholesterol, Calculated 118 mg/dL (0-100) VLDL Cholesterol, Calculated 21 mg/dL (0-40) Non-HDL Cholesterol Calculated 139 mg/dL (0-129) HDL Cholesterol 44 mg/dL (40-60) Cholesterol/HDL Ratio 4.2 Laboratory Tests Test 06/06/21 16:04 06/06/21 22:35 06/07/21 04:35 Heparin Anti-Xa Act, Unfractionated 0.56 IU/mL (0.30-0.70) 0.44 IU/mL (0.30-0.70) 0.49 IU/mL (0.30-0.70) White Blood Count 6.0 x10^3/uL (4.0-11.0) Red Blood Count 4.68 x10^6/uL (4.30-5.70) Hemoglobin 15.0 g/dL (13.0-17.5) Hematocrit 43.8 % (39.0-53.0) Mean Corpuscular Volume 94 fL (79-100) Mean Corpuscular Hemoglobin 32 pg (25-35) Mean Corpuscular Hemoglobin Concent 34 g/dL (31-37) Red Cell Distribution Width 13.3 % (11.5-14.5) Platelet Count 264 x10^3/uL (140-400) Sodium Level 140 mmol/L (136-145) Potassium Level 3.8 mmol/L (3.5-5.1) Chloride Level 104 mmol/L (98-107) Carbon Dioxide Level 29 mmol/L (21-32) Anion Gap 7 (6-14) Blood Urea Nitrogen 15 mg/dL (8-26) Creatinine 0.9 mg/dL (0.7-1.3) Estimated GFR (Cockcroft-Gault) 83.7 Glucose Level 109 mg/dL (70-99) Calcium Level 8.5 mg/dL (8.5-10.1) Triglycerides Level 103 mg/dL (0-150) Cholesterol Level 183 mg/dL (0-200) LDL Cholesterol, Calculated 118 mg/dL (0-100) VLDL Cholesterol, Calculated 21 mg/dL (0-40) Non-HDL Cholesterol Calculated 139 mg/dL (0-129) HDL Cholesterol 44 mg/dL (40-60) Cholesterol/HDL Ratio 4.2 Medications Current Medications Aspirin (Aspirin Chewable) 162 mg 1X ONCE PO Last administered on 06/05/21at 20:57; Start 06/05/21 at 21:00; Stop 06/05/21 at 21:01; Status DC Nitroglycerin (Nitrostat) 0.4 mg PRN Q5MIN PRN SL CHEST PAIN Last administered on 06/05/21at 20:57; Start 06/05/21 at 21:00; Stop 06/05/21 at 21:56; Status DC Ondansetron HCl (Zofran) 4 mg PRN Q8HRS PRN IVP NAUSEA/VOMITING 1ST CHOICE; Start 06/05/21 at 22:00; Stop 06/06/21 at 21:59; Status DC Morphine Sulfate (Morphine Sulfate) 2 mg PRN Q2HR PRN IVP SEVERE PAIN 7-10; Start 06/05/21 at 22:00; Stop 06/06/21 at 21:59; Status DC Nitroglycerin (Nitrostat) 0.4 mg PRN Q5MIN PRN SL CHEST PAIN; Start 06/05/21 at 22:00; Stop 06/06/21 at 21:59; Status DC Heparin Sodium/ Dextrose 250 ml @ 0 mls/hr CONT PRN IV PER PROTOCOL Last administered on 06/07/21at 10:41; Start 06/06/21 at 01:45 Heparin Sodium (Porcine) (Heparin Sodium) 2,200 unit PRN Q6HRS PRN IV FOR UFH LEVEL LESS THAN 0.2 Last administered on 06/06/21at 09:48; Start 06/06/21 at 01:45 Info (Anti-Coagulation Monitoring By Pharmacy) 1 each PRN DAILY PRN MC PER PROTOCOL Last administered on 06/06/21at 03:38; Start 06/06/21 at 02:00 Aspirin (Aspirin Chewable) 81 mg HS PO Last administered on 06/06/21at 21:05; Start 06/06/21 at 21:00 Lactobacillus Rhamnosus (Culturelle) 1 cap DAILY PO Last administered on 06/07/21at 08:00; Start 06/07/21 at 09:00 Fish Oil (Fish Oil) 1,000 mg DAILY PO Last administered on 06/07/21at 08:00; Start 06/06/21 at 13:00 Hydrochlorothiazide (Microzide) 12.5 mg DAILY PO Last administered on 06/07/21at 08:00; Start 06/06/21 at 13:00 Lisinopril (Prinivil) 2.5 mg DAILY PO Last administered on 06/07/21at 08:00; Start 06/06/21 at 13:00 Multivitamins (Thera M Plus) 1 tab DAILY PO Last administered on 06/07/21at 07:59; Start 06/06/21 at 13:00 Niacin (Niaspan) 500 mg QHS PO Last administered on 06/06/21at 21:05; Start 06/06/21 at 21:00 Metoprolol Tartrate (Lopressor) 25 mg BID PO Last administered on 06/07/21at 09:00; Start 06/06/21 at 21:00 Clopidogrel Bisulfate (Plavix) 300 mg 1X ONCE PO Last administered on 06/06/21at 16:42; Start 06/06/21 at 16:15; Stop 06/06/21 at 16:21; Status DC Active Scripts Active Reported Multivitamins With Minerals (Multivitamin With Minerals) 1 Each Tablet 1 Tab PO DAILY 30 Days Aspirin 81 Mg Tab.chew 1 Tab PO HS Niacin 500 Mg Capsule (Niacin (Inositol Niacinate)) 500 Mg Capsule 1 Cap PO DAILY 30 Days Fish Oil Concentrate Softgel (Docosahexanoic Acid/Epa) 1 Each Capsule 1 Cap PO DAILY 30 Days Align (Bifidobacterium Infantis) 4 Mg Capsule 1 Cap PO DAILY 30 Days Lisinopril 2.5 Mg Tablet 1 Tab PO DAILY Hydrochlorothiazide Tablet (Hydrochlorothiazide) 12.5 Mg Tablet 1 Tab PO DAILY Vitals/I & O Vital Sign - Last 24 Hours 06/06/21 06/06/21 06/06/21 06/06/21 14:37 19:44 20:00 21:06 Temp 97.8 98.6 97.8 98.6 Pulse 72 84 84 Resp 20 18 B/P (MAP) 144/85 (104) 196/99 (131) 196/99 Pulse Ox 96 96 O2 Delivery Room Air Room Air Room Air 06/06/21 06/06/21 06/07/21 06/07/21 21:11 22:32 02:47 07:45 Temp 98.8 98.0 97.9 98.8 98.0 97.9 Pulse 86 84 65 69 Resp 16 18 18 B/P (MAP) 164/88 (113) 172/94 (120) 140/80 (100) 142/80 (100) Pulse Ox 95 94 97 O2 Delivery Room Air Room Air Room Air 06/07/21 06/07/21 06/07/21 08:00 09:00 10:46 Temp 98.3 98.3 Pulse 68 78 62 Resp 20 B/P (MAP) 142/80 140/87 126/74 (91) Pulse Ox 95 O2 Delivery Room Air Intake and Output 06/06/21 06/06/21 06/07/21 15:00 23:00 07:00 Intake Total 120 ml 550 ml 0 ml Balance 120 ml 550 ml 0 ml Justifications for Admission Other Justification MOY POWER MD Jun 07, 2021 13:32
[2021-06-07 15:00] VITALS: BP 137/76
[2021-06-07 19:36] VITALS: BP 162/97
[2021-06-07] MEDS: NIACIN ER 250 MG CAPSULE.ER PO SCH (21:26)
[2021-06-07] MEDS: ASPIRIN CHEWABLE 81 MG TABLET. PO SCH (21:26)
[2021-06-07 22:41] VITALS: BP 163/90
[2021-06-08] VITALS (14 sets, daily range): BP systolic 130–166; BP diastolic 77–95
[2021-06-08] MEDS: METOPROLOL TART IMMED RELEASE 25 MG TABLET. PO SCH ×2 (09:17→21:11)
[2021-06-08] MEDS: hydroCHLOROthiazide 12.5 MG CAPSULE PO SCH (09:17)
[2021-06-08] MEDS: LISINOPRIL 5 MG TABLET. PO SCH (09:17)
[2021-06-08] MEDS: IV NORMAL SALINE 1000ML BAG 1,000 ML IV SCH ×2 (09:18→21:10)
[2021-06-08] MEDS ORDERED: LIDOCAINE 1% PF 2 ML VIAL. ONE (10:28)
[2021-06-08] MEDS ORDERED: IODIXANOL 320 MG/ML 100 ML VIAL. ONE (10:28)
--- NOTE | 2021-06-08 11:16 | CARD ---
MR#: [id number] Date of Study: 06/07/2021 Ordering Physician: ALO BENJAMIN, Referring Physician: ALO BENJAMIN, Tech: Stephanie Johnson RDCS APPROVED REPORT EXAM: Two-dimensional and M-mode echocardiogram with Doppler and color Doppler. Other Information Quality : GoodHR: 71bpm Rhythm : NSR INDICATION Non STEMI 2D DIMENSIONS Left Atrium(2D)4.2 (1.6-4.0cm)IVSd1.0 (0.7-1.1cm) LVDd4.4 (3.9-5.9cm)LVOT Diameter2.0 (1.8-2.4cm) PWd1.0 (0.7-1.1cm)LVDs3.0 (2.5-4.0cm) LVEF(%)59.0 (>50%) Aortic Valve AoV Peak Con.144.8cm/sAoV VTI30.1cm AO Peak GR.8.4mmHgLVOT Peak Con.101.2cm/s AO Mean GR.5mmHg Mitral Valve E/A Ratio1.1 TDI Lateral E' P. V13.00cm/sMedial E' P. V10.00cm/s Tricuspid Valve TR P. [id number]/sTR Peak Gr.10mmHg LEFT VENTRICLE The left ventricle is normal size. There is normal left ventricular wall thickness. The left ventricu lar systolic function is normal. LV ejection fraction is 55 to 60%. There is normal LV segmental wall motion. No left ventricle thrombus noted on this study. There is no ventricular septal defect visual ized. There is no left ventricular aneurysm. There is no mass noted in the left ventricle. RIGHT VENTRICLE The right ventricle is normal size. There is normal right ventricular wall thickness. The right ventr icular systolic function is normal. ATRIA The left atrium size is normal. The right atrium size is normal. The interatrial septum is intact wit h no evidence for an atrial septal defect or patent foramen ovale as noted on 2-D or Doppler imaging. AORTIC VALVE The aortic valve is normal in structure and function. Doppler and Color Flow revealed no significant aortic regurgitation. There is no significant aortic valvular stenosis. There is no aortic valvular v egetation. MITRAL VALVE The mitral valve is normal in structure and function. There is no evidence of mitral valve prolapse. There is no mitral valve stenosis. Doppler and Color-flow revealed mild mitral regurgitation. TRICUSPID VALVE The tricuspid valve is normal in structure and function. Doppler and Color Flow revealed trace tricus pid regurgitation. There is no tricuspid valve prolapse or vegetation. There is no tricuspid valve st enosis. PULMONIC VALVE The pulmonary valve is normal in structure and function. Doppler and Color Flow revealed no pulmonic valvular regurgitation. There is no pulmonic valvular stenosis. GREAT VESSELS The aortic root is normal in size. The ascending aorta is normal in size. The IVC is normal in size a nd collapses >50% with inspiration. PERICARDIAL EFFUSION There is no pleural effusion. There is no evidence of significant pericardial effusion. Critical Notification Critical Value: No <Conclusion> The left ventricle is normal size. The left ventricular systolic function is normal. LV ejection fraction is 55 to 60%. There is normal LV segmental wall motion. Doppler and Color Flow revealed no significant aortic regurgitation. There is no significant aortic valvular stenosis. Doppler and Color-flow revealed mild mitral regurgitation. Doppler and Color Flow revealed trace tricuspid regurgitation. Signed by : Alo Benjamin MD Electronically Approved : 06/08/2021 11:16:16
[2021-06-08] MEDS ORDERED: HEPARIN for IV BOLUS 10,000 UNIT/10 ML VIAL. ONE (12:49)
[2021-06-08] MEDS ORDERED: MIDAZOLAM HCL/PF 5 MG/5 ML VIAL. ONE (12:49)
[2021-06-08] MEDS ORDERED: VERAPAMIL 5 MG/2 ML VIAL. ONE (12:49)
[2021-06-08] MEDS ORDERED: fentaNYL PF VIAL 100 MCG/2 ML VIAL ONE (12:49)
[2021-06-08] MEDS ORDERED: NITROGLYCERIN 200 MCG/2 ML SYRINGE FOR CATH/VASC LAB. ONE (12:49)
[2021-06-08] MEDS ORDERED: VERAPAMIL 5 MG/2 ML VIAL. IART ONE (13:15)
[2021-06-08] MEDS ORDERED: IODIXANOL 320 MG/ML 100 ML VIAL. IART ONE (13:15)
[2021-06-08] MEDS ORDERED: HEPARIN for IV BOLUS 10,000 UNIT/10 ML VIAL. IART ONE (13:15)
[2021-06-08] MEDS ORDERED: MIDAZOLAM HCL/PF 5 MG/5 ML VIAL. IV ONE (13:15)
[2021-06-08] MEDS ORDERED: LIDOCAINE 1% PF 2 ML VIAL. INJ ONE (13:15)
[2021-06-08] MEDS ORDERED: fentaNYL PF VIAL 100 MCG/2 ML VIAL IV ONE (13:15)
[2021-06-08] MEDS ORDERED: NITROGLYCERIN 200 MCG/2 ML SYRINGE FOR CATH/VASC LAB. IART ONE (13:15)
--- NOTE | 2021-06-08 13:44 | PDOC ---
[facility] PROGRESS NOTE Date of Service DOS: DATE: 06/08/21 TIME: 13:44 Chief Complaint Chief Complaint Chest pain NSTEMI Carotid Artery Disease HTN HLD History of Present Illness History of Present Illness 06/07/2021: Pt seen and examined. Discussed with RN. Chart reviewed. Pt resting, NAD. EKG tracing shows inverted T-waves. Per nurse, pt has not had CP today. Troponin peaked at 6 and down to 4. n.p.o. after midnight for cardiac catheterization in the morning. Seen before and his chest discomfort had improv ed. Seen after cardiac catheterization with triple-vessel disease was noted he is trying to coordinate going for CABG. Vitals/I&O Vitals/I&O: Vital Signs Date Time Temp Pulse Resp B/P (MAP) Pulse Ox O2 Delivery O2 Flow Rate FiO2 06/08/21 11:00 98.1 59 18 160/83 (108) 94 Room Air 98.1 I & O 06/07/21 06/07/21 06/08/21 14:59 22:59 06:59 Intake Total 540 ml 1100 ml 0 ml Balance 540 ml 1100 ml 0 ml Physical Exam General: No acute distress Heart: Regular rate Abdomen: Normal bowel sounds Extremities: No clubbing Skin: No rashes Labs Labs: Laboratory Tests Test 06/08/21 03:50 Heparin Anti-Xa Act, Unfractionated 0.36 IU/mL (0.30-0.70) Assessment and Plan Assessmemt and Plan Problems Medical Problems: (1) Chest pain Status: Acute Comment Review of Relevant I have reviewed the following items sagar (where applicable) has been applied. Medications: Current Medications Medications (Trade) Dose Ordered Sig/Josh Route PRN Reason Start Time Stop Time Status Last Admin Dose Admin Sodium Chloride 1,000 ml @ 75 mls/hr [id number] IV 06/08/21 07:30 06/08/21 09:18 Justifications for Admission Other Justification NEVAEH FELIZ MD Jun 08, 2021 13:44
[2021-06-08] MEDS ORDERED: CONTRAST GIVEN. MC PRN (14:30)
--- NOTE | 2021-06-08 14:40 | PDOC ---
MODERATE SEDATION ASSESSMENT RISKS/ALTERNATIVES Risks/Alternatives Risks and alternatives of this type of sedation and procedure discussed with: RISK/ALTERNATIVES: Patient H & P ON CHART H & P H & P on chart and reviewed for co-morbid conditions and appropriate labs. H&P ON CHART: Yes STATUS PREG STATUS ASSESSED: N/A MEDS/ALLERGIES REVIEWED Meds/Allergies Reviewed Medications and Allergies including time and route of recently administered narcotics and sedatives. MEDS/ALLERGIES REVIEWED: Yes ASA RATING ASA RATING: II AIRWAY ASSESSMENT Airway Assessment Airway patency, oral function limitations, presence of caps, crowns, dentures, partials, and ability to extend neck assessed. AIRWAY ASSESSMENT: Yes MALLAMPATI SCORE MALLAMPATI SCORE: II PRE-SEDATION ASSESSMENT PRE-SEDATION ASSESSMENT: Yes INES FERNANDEZ MD Jun 08, 2021 14:40
--- NOTE | 2021-06-08 15:19 | CARD ---
MR#: [id number] Date of Study: 06/08/2021 Ordering Physician: MOY POWER, Referring Physician: MOY POWER, Tech: RT Kaylynn(R)() APPROVED REPORT Technologist: RT Kaylynn(R)() Nurse: Tri Elliott RN Procedure(s) performed: Left heart catheterization, selective coronary angiography and left ventricul ography via right transradial approach MODERATE SEDATION TIME: 35 MINUTES FLUORO TIME: 7.3 MIN DOSE:60.04 GYCM2 CONTRAST: 87CC VISI [facility] Clinical Frailty Scale [facility] Clinical Frailty Scale: Managing Well Heart Failure Heart Failure: No CASE TECHNIQUE IV conscious sedation was used throughout procedure with appropriate monitoring and was performed in the presence of a registered nurse who was an independent trained observer other than the physician p erforming the procedure. During this case, Fluoroscopy and low osmolar contrast were used for imaging . Specimen(s) Removed: No Estimated Blood loss: 15 cc's. PROCEDURE NARRATIVE After explaining the risks, benefits and alternative options, informed consent was obtained from tatum ent. Patient was brought to the cardiac Paint Tester and right wrist was prepped and draped in the usual fashion after confirming a positive modified Jim's test. Arterial access was obtained in the righ t radial artery and a 6 Kenyan sheath was inserted. 6 Kenyan Enrique and 6 Kenyan JR4 catheters were used to perform selective angiography of the left and right coronary arteries. 6 Kenyan pigtail cath eter was used to perform left ventriculography. Patient tolerated the procedure well. Hemostasis wa s achieved using TR band. There were no immediate complications. The following findings were noted. FINDINGS 1. Hemodynamics: Left ventricular end-diastolic pressure of 13 mmHg. No pullback gradient across th e aortic valve. 2. Left ventriculography: Normal left ventricle systolic function with ejection fraction estimated at 60%. No significant mitral regurgitation seen. 3. Coronary angiography: a. The left main coronary artery arose from the left sinus of Valsalva, gave rise to the left anteri or descending, ramus intermedius and left circumflex arteries and did not show any significant stenos is. b. The left anterior descending artery showed 50% stenosis involving the ostial/proximal segment and 90% bifurcation lesion involving the mid segment of LAD and proximal segment of a small caliber diag onal branch. c. The ramus intermedius artery is a good caliber vessel and showed 90% stenosis in the proximal seg ment. d. The left circumflex artery did not show any significant stenosis. e. The right coronary artery was a large and dominant vessel arising from the right sinus of Valsalv a that showed 50% stenosis in the proximal segment, 70% stenosis in the proximal to mid segment and a long 90% bifurcation lesion involving the distal segment of the RCA, proximal segments of posterior descending and posterolateral branches. Conclusion 1. Severe three-vessel coronary artery disease as described above 2. Normal left ventricle systolic function with ejection fraction estimated at 60% Recommendations Cardiothoracic surgery team consultation for possible coronary artery bypass surgery Signed by : Kvng Hill, Electronically Approved : 06/08/2021 15:19:09
--- NOTE | 2021-06-08 15:21 | NUR ---
SS following for discharge planning. SS reviewed pt chart and discussed with pt RN. Pt is from home with spouse and is currently on room air. Pt had heart cath today. Heparin drip. SS will continue to follow for discharge planning.
[2021-06-08] MEDS: LACTOBACILLUS RHAMNOSUS GG 1 CAPSULE. PO SCH (15:22)
[2021-06-08] MEDS: OMEGA-3 FATTY ACIDS/FISH OIL 1,000 MG CAPSULE. PO SCH (15:22)
[2021-06-08] MEDS: MULTIVITAMIN with MINERAL TABLET. PO SCH (15:22)
[2021-06-08] MEDS: IV 1/2 NORMAL SALINE 1,000 ML IV SCH (15:43)
[2021-06-08] MEDS: HEPARIN 25,000UTS/250ML PREMIX 250 ML IV PRN (15:47)
[2021-06-08] MEDS: ASPIRIN CHEWABLE 81 MG TABLET. PO SCH (21:10)
[2021-06-08] MEDS: NIACIN ER 250 MG CAPSULE.ER PO SCH (21:10)
--- NOTE | 2021-06-09 02:21 | NUR ---
pt is a/o x4 with no complaints at this time. pt and were asking questions at the beginning of shift about the MRI results. I gave them a brief overview of what the doctors findings were, but told patient had spouse that the doctor would elaborate more and give tx. methods. Patient has been resting comfortably, will continue to monitor. Addendum: 06/09/21 at 0225 by LEILA GODDARD RN RN charted on wrong patient.
[2021-06-09 02:38] VITALS: BP 126/71
[2021-06-09 03:56] LABS: HEMATOCRIT 43.2 % (39.0-53.0); HEMOGLOBIN 14.8 g/dL (13.0-17.5); RED BLOOD COUNT 4.59 x10^6/uL (4.30-5.70); RED CELL DISTRIBUTION WIDTH 13.3 % (11.5-14.5); WHITE BLOOD COUNT 7.1 x10^3/uL (4.0-11.0)
[2021-06-09 07:00] VITALS: BP 141/87
[2021-06-09] MEDS: IV 1/2 NORMAL SALINE 1,000 ML IV SCH (07:25)
--- NOTE | 2021-06-09 07:58 | PDOC ---
[facility] PROGRESS NOTE Date of Service DOS: DATE: 06/09/21 TIME: 07:58 Chief Complaint Chief Complaint Chest pain NSTEMI - 3 vessel CAD Carotid Artery Disease HTN HLD History of Present Illness History of Present Illness 06/07/2021: Pt seen and examined. Discussed with RN. Chart reviewed. Pt resting, NAD. EKG tracing shows inverted T-waves. Per nurse, pt has not had CP today. 06/08: Troponin peaked at 6 and down to 4. n.p.o. after midnight for cardiac catheterization in the morning. Seen before and his chest discomfort had improved. Seen after cardiac catheterization with triple-vessel disease was noted he is trying to coordinate going for CABG. Still little short of breath. Pain is improved. Still on heparin GTT. Discussed with patient daughter bedside and try to coordinate transfer for CABG consideration by CT surgery, cardiology has reached out to [facility]. Vitals/I&O Vitals/I&O: Vital Signs Date Time Temp Pulse Resp B/P (MAP) Pulse Ox O2 Delivery O2 Flow Rate FiO2 06/09/21 02:38 97.5 68 16 126/71 (89) 100 Room Air 97.5 06/08/21 20:00 2.0 I & O 06/08/21 06/08/21 06/09/21 15:00 23:00 07:00 Intake Total 600 ml 200 ml 362 ml Balance 600 ml 200 ml 362 ml Physical Exam General: No acute distress Heart: Regular rate Abdomen: Normal bowel sounds Extremities: No clubbing Skin: No rashes Labs Labs: Laboratory Tests Test 06/08/21 21:53 06/09/21 02:55 Heparin Anti-Xa Act, Unfractionated 0.38 IU/mL (0.30-0.70) White Blood Count 7.1 x10^3/uL (4.0-11.0) Red Blood Count 4.59 x10^6/uL (4.30-5.70) Hemoglobin 14.8 g/dL (13.0-17.5) Hematocrit 43.2 % (39.0-53.0) Mean Corpuscular Volume 94 fL (79-100) Mean Corpuscular Hemoglobin 32 pg (25-35) Mean Corpuscular Hemoglobin Concent 34 g/dL (31-37) Red Cell Distribution Width 13.3 % (11.5-14.5) Platelet Count 249 x10^3/uL (140-400) Assessment and Plan Assessmemt and Plan Problems Medical Problems: (1) Chest pain Status: Acute Comment Review of Relevant I have reviewed the following items sagar (where applicable) has been applied. Medications: Current Medications Medications (Trade) Dose Ordered Sig/Josh Route PRN Reason Start Time Stop Time Status Last Admin Dose Admin Nitroglycerin (Nitroglycerin) 200 mcg 1X ONCE IART 06/08/21 13:15 06/08/21 14:28 DC 06/08/21 14:46 Verapamil HCl (Verapamil) 2.5 mg 1X ONCE IART 06/08/21 13:15 06/08/21 14:31 DC 06/08/21 13:15 Heparin Sodium (Porcine) (Heparin Sodium) 2,500 unit 1X ONCE IART 06/08/21 13:15 06/08/21 14:31 DC 06/08/21 14:46 Heparin Sodium/ Sodium Chloride (HEPARIN for ARTERIAL LINE FLUSH) 1,000 unit 1X ONCE IART 06/08/21 13:15 06/08/21 14:31 DC 06/08/21 14:41 Midazolam HCl (Versed) 5 mg 1X ONCE IV 06/08/21 13:15 06/08/21 14:31 DC 06/08/21 14:45 Fentanyl Citrate (Fentanyl 2ml Vial) 100 mcg 1X ONCE IV 06/08/21 13:15 06/08/21 14:31 DC 06/08/21 14:45 Iodixanol (Visipaque 320) 100 ml 1X ONCE IART 06/08/21 13:15 06/08/21 14:31 DC 06/08/21 14:45 Lidocaine HCl (Xylocaine-Mpf 1% 2ml Vial) 2 ml 1X ONCE INJ 06/08/21 13:15 06/08/21 14:31 DC 06/08/21 14:41 Sodium Chloride 1,000 ml @ 60 mls/hr [id number] IV 06/08/21 14:45 06/08/21 15:43 Justifications for Admission Other Justification NEVAEH FELIZ MD Jun 09, 2021 07:58
[2021-06-09] MEDS: hydroCHLOROthiazide 12.5 MG CAPSULE PO SCH (08:47)
[2021-06-09] MEDS: METOPROLOL TART IMMED RELEASE 25 MG TABLET. PO SCH (08:47)
[2021-06-09] MEDS: LISINOPRIL 5 MG TABLET. PO SCH (08:48)
[2021-06-09] MEDS: IV NORMAL SALINE 1000ML BAG 1,000 ML IV SCH (10:10)
[2021-06-09 11:00] VITALS: BP 149/86
[2021-06-09] MEDS: ANTI-COAG MONITOR BY PHARMACY. MC PRN (11:08)
--- NOTE | 2021-06-09 11:11 | PDOC ---
CARDIO Progress Notes Date and Time Date of Service 06/09/21 Time of Evaluation 1050 Subjective Subjective: No Chest Pain, No shortness of breath, No Palpitations Vitals Vitals Vital Signs Date Time Temp Pulse Resp B/P (MAP) Pulse Ox O2 Delivery O2 Flow Rate FiO2 06/09/21 08:48 66 141/87 06/09/21 07:00 98.1 16 96 Room Air 98.1 06/08/21 20:00 2.0 Weight Weight [ ] Input and Output Intake and Output Intake and Output 06/09/21 07:00 Intake Total 1162 ml Balance 1162 ml Intake Oral 200 ml IV Total 600 ml Other 362 ml # Voids 4 Laboratory Labs Laboratory Tests Test 06/08/21 21:53 06/09/21 02:55 Heparin Anti-Xa Act, Unfractionated 0.38 IU/mL (0.30-0.70) White Blood Count 7.1 x10^3/uL (4.0-11.0) Red Blood Count 4.59 x10^6/uL (4.30-5.70) Hemoglobin 14.8 g/dL (13.0-17.5) Hematocrit 43.2 % (39.0-53.0) Mean Corpuscular Volume 94 fL (79-100) Mean Corpuscular Hemoglobin 32 pg (25-35) Mean Corpuscular Hemoglobin Concent 34 g/dL (31-37) Red Cell Distribution Width 13.3 % (11.5-14.5) Platelet Count 249 x10^3/uL (140-400) Physical Exam HEENT: Neck Supple W Full Motion Chest: Symmetric LUNGS: Clear to Auscultation Heart: RRR Abdomen: Soft N/T Extremities: No Edema Neurology: alert, oriented, follow commands Assessment Assessment 1. NSTEMI; trop peak 6 2. CAD; LHC revealed severe 3V CAD; Echo with preserved LV systolic function 3. Hypertension; controlled overall 4. Hyperlipidemia; statin 5. Carotid disease s/p carotid endarterectomy 2017 Recommendations Secondary prevention Continue ASA, metoprolol, heparin gtt Add statin CTS evaluating for possible CABG Will obtain vein mapping and carotid doppler for preop evaluation Supportive care Justicifation of Admission Dx: Justifications for Admission: Justification of Admission Dx: Yes Comments: NSTEMI CAD, 3VD PURVI CHO APRN Jun 09, 2021 11:11
[2021-06-09] MEDS: OMEGA-3 FATTY ACIDS/FISH OIL 1,000 MG CAPSULE. PO SCH (11:16)
[2021-06-09] MEDS: MULTIVITAMIN with MINERAL TABLET. PO SCH (11:16)
[2021-06-09] MEDS: LACTOBACILLUS RHAMNOSUS GG 1 CAPSULE. PO SCH (11:16)
--- NOTE | 2021-06-09 13:07 | NUR ---
SS following up with discharge planning. SS reviewed pt chart and discussed with pt RN. Pt is currently on room air. Pt had heart cath on 06/08/2021. Per Cardiology, pt needing transfer to [facility] due to need for Cardiothoracic Surgeon. Dr. Manzo accepted. SS received phone call from RN Management Department Chair, Tahira, , stating that they are working to find pt bed at this time. Tahira requested that SS contact the transfer team and send records. SS contacted [facility] transfer team, ; fax [phone], and made request for transfer. Images clouded to [facility]. SS faxed records as requested. COVID19 test pending for transfer. Packet, ambulance form, and transfer form on the chart. Addendum: 06/09/21 at 1427 by STACI SHAH SS Pt accepted at [facility]. Accepting physician, Dr. Anna Manzo. Bed# 2342. Report# [id number] [phone]. Pt will discharge and go to [facility] at 1530 via [facility], . Packet, ambulance form, and transfer form on the chart.
--- NOTE | 2021-06-09 13:22 | RAD ---
MR#: [id number] Date of Study: 06/09/2021 Ordering Physician: PURVI CHO, Referring Physician: PURVI CHO, Tech: Peter Dunbar MBA, RDMS, RVT, RDCS, RTR APPROVED REPORT Patient Location: OUT-PATIENT Laterality:Bilateral Indications PRE-OP CABG Doppler Spectral Velocity Analysis Right Left pCCA 88/25 cm/spCCA 144/27 cm/s mCCA 77/21 cm/smCCA 101/24 cm/s dCCA 71/18 cm/sdCCA 95/27 cm/s Bulb 56/13 cm/sBulb 70/22 cm/s ECA 160/ cm/sECA 157/ cm/s pICA 73/26 cm/spICA 75/27 cm/s Alexa 75/23 cm/smICA 79/29 cm/s dICA 105/38 cm/sdICA 79/29 cm/s Vert. 58/ cm/sVert. 61/ cm/s Subcl. 71/ cm/sSubcl. 120/ cm/s ICA/CCA 1.19ICA/CCA 0.55 Findings Grayscale images of the bilateral carotid vessels demonstrates mild to moderate diffuse atheroscleros is. No high-grade focal stenosis identified. Spectral waveforms and color Doppler of the bilateral common and internal carotid vessels demonstrate overall 0 to less than 50% stenosis based on velocity criteria. Mild elevation of velocities in the bilateral external carotid arteries are consistent with moderate 50 to 69% stenosis. Normal ICA to CCA ratios bilaterally. Normal antegrade vertebral velocities bilaterally. Normal subclavian velocities bilaterally Critical Notification Critical Value: No <Conclusion> 1. No significant carotid occlusive disease bilaterally Signed by : Stephan Cintron, Electronically Approved : 06/09/2021 13:22:32
--- NOTE | 2021-06-09 13:24 | RAD ---
MR#: [id number] Date of Study: 06/09/2021 Ordering Physician: PURVI CHO, Referring Physician: PURVI CHO, Tech: Peter Dunbar MBA, RDMS, RVT, RDCS, RTR APPROVED REPORT Patient Location: IN-PATIENT Indications PRE-OP CABG Vein Measurements Great Saphenous Small Saphenous RightLeft RightLeft Saph-Fem. Junction 3.60mm2.80mmProximal 1.80mm1.70mm Mid Thigh 2.00mm2.30mmMid 2.00mm2.90mm Distal Thigh 2.20mm1.70mmDistal 2.80mm2.20mm Proximal Calf 2.50mm2.40mm Mid Calf 1.70mm2.60mm Distal Calf 1.70mm1.90mm Findings Patent bilateral greater and lesser saphenous veins with measurements as noted. Of note, cannot rule out a mild component of spasm in the bilateral greater and lesser saphenous vein s. Critical Notification Critical Value: No <Conclusion> 1. Patent bilateral greater and lesser saphenous veins with mildly diminished caliber in the mid to distal segment of the vessels. Signed by : Stephan Cintron, Electronically Approved : 06/09/2021 13:24:20
[2021-06-09] MEDS: HEPARIN 25,000UTS/250ML PREMIX 250 ML IV PRN (14:12)
--- NOTE | 2021-06-09 14:28 | PDOC3 ---
Discharge Summary Visit Information Date of Admission: Jun 06, 2021 Date of Discharge: Jun 09, 2021 Admitting Diagnosis: NSTEMI Final Diagnosis Problems Medical Problems: (1) Chest pain Status: Acute Brief Hospital Course Allergies Allergies Coded Allergies Type Severity Reaction Last Updated Verified Sulfa (Sulfonamide Antibiotics) Allergy Intermediate 06/05/21 Yes Vital Signs Vital Signs Date Time Temp Pulse Resp B/P (MAP) Pulse Ox O2 Delivery O2 Flow Rate FiO2 06/09/21 11:00 98.0 57 16 149/86 (107) 97 Room Air 98.0 06/08/21 20:00 2.0 Lab Results Laboratory Tests Test 06/08/21 03:50 06/08/21 21:53 06/09/21 02:55 06/09/21 10:45 Heparin Anti-Xa Act, Unfractionated 0.36 IU/mL (0.30-0.70) 0.38 IU/mL (0.30-0.70) 0.42 IU/mL (0.30-0.70) White Blood Count 7.1 x10^3/uL (4.0-11.0) Red Blood Count 4.59 x10^6/uL (4.30-5.70) Hemoglobin 14.8 g/dL (13.0-17.5) Hematocrit 43.2 % (39.0-53.0) Mean Corpuscular Volume 94 fL (79-100) Mean Corpuscular Hemoglobin 32 pg (25-35) Mean Corpuscular Hemoglobin Concent 34 g/dL (31-37) Red Cell Distribution Width 13.3 % (11.5-14.5) Platelet Count 249 x10^3/uL (140-400) Test 06/09/21 12:50 SARS-CoV-2 Antigen (Rapid) Negative (NEGATIVE) Laboratory Tests Test 06/08/21 21:53 06/09/21 02:55 06/09/21 10:45 06/09/21 12:50 Heparin Anti-Xa Act, Unfractionated 0.38 IU/mL (0.30-0.70) 0.42 IU/mL (0.30-0.70) White Blood Count 7.1 x10^3/uL (4.0-11.0) Red Blood Count 4.59 x10^6/uL (4.30-5.70) Hemoglobin 14.8 g/dL (13.0-17.5) Hematocrit 43.2 % (39.0-53.0) Mean Corpuscular Volume 94 fL (79-100) Mean Corpuscular Hemoglobin 32 pg (25-35) Mean Corpuscular Hemoglobin Concent 34 g/dL (31-37) Red Cell Distribution Width 13.3 % (11.5-14.5) Platelet Count 249 x10^3/uL (140-400) SARS-CoV-2 Antigen (Rapid) Negative (NEGATIVE) Brief Hospital Course Mr Palomino is a 70-year-old male w/ PMHx carotid artery disease s/p right CEA (2018, HTN, HLD who came to the emergency room room 11/06/2020 in the evening for new onset of chest pain at rest. The patient's initial EKG showed no acute ST segment elevation but did show mild nonspecific ST-T wave changes. Initial troponin was 0.022. Chest x-ray showed minimal increased interstitial findings and mild cardiomegaly. The patient's second troponin was mildly elevated at than it peaked at 6.166 but now has decreased to 4.836. Patient was treated with aspirin and IV heparin overnight and he has had no recurrent pain from his initial pain in the emergency room. He does have a history of hypertension and probable hyperlipidemia. He denies any previous history of coronary disease or heart failure. He does have a family history of early coronary disease. He is a non-smoker and does not use alcohol. Of note he has been using 5-FU therapy topically on a few lesions on his chest that were precancerous and cancerous lesions that have been healing well. 06/07/2021: Pt seen and examined. Discussed with RN. Chart reviewed. Pt resting, NAD. EKG tracing shows inverted T-waves. Per nurse, pt has not had CP today. 06/08: Troponin peaked at 6 and down to 4. n.p.o. after midnight for cardiac catheterization in the morning. Seen before and his chest discomfort had improved. Seen after cardiac catheterization with triple-vessel disease was noted he is trying to coordinate going for CABG. 06/09: Still little short of breath. Pain is improved. Still on heparin GTT. Discussed with patient daughter bedside and try to coordinate transfer for CABG consideration by CT surgery, cardiology has reached out to [facility]. [CATH REPORT: PROCEDURE NARRATIVE After explaining the risks, benefits and alternative options, informed consent was obtained from patient. Patient was brought to the cardiac [employer] and right wrist was prepped and draped in the usual fashion after confirming a positive modified Jim's test. Arterial access was obtained in the right radial artery and a 6 Niuean sheath was inserted. 6 Niuean Enrique and 6 Niuean JR4 catheters were used to perform selective angiography of the left and right coronary arteries. 6 Niuean pigtail catheter was used to perform left ventriculography. Patient tolerated the procedure well. Hemostasis was achieved using TR band. There were no immediate complications. The following findings were noted. FINDINGS 1. Hemodynamics: Left ventricular end-diastolic pressure of 13 mmHg. No pullback gradient across the aortic valve. 2. Left ventriculography: Normal left ventricle systolic function with ejection fraction estimated at 60%. No significant mitral regurgitation seen. 3. Coronary angiography: a. The left main coronary artery arose from the left sinus of Valsalva, gave rise to the left anterior descending, ramus intermedius and left circumflex arteries and did not show any significant stenosis. b. The left anterior descending artery showed 50% stenosis involving the ostial/proximal segment and 90% bifurcation lesion involving the mid segment of LAD and proximal segment of a small caliber diagonal branch. c. The ramus intermedius artery is a good caliber vessel and showed 90% stenosis in the proximal segment. d. The left circumflex artery did not show any significant stenosis. e. The right coronary artery was a large and dominant vessel arising from the right sinus of Valsalva that showed 50% stenosis in the proximal segment, 70% stenosis in the proximal to mid segment and a long 90% bifurcation lesion involving the distal segment of the RCA, proximal segments of posterior descending and posterolateral branches. Conclusion 1. Severe three-vessel coronary artery disease as described above 2. Normal left ventricle systolic function with ejection fraction estimated at 60%] 06/08/2021 ECHOCARDIOGRAM: The left ventricle is normal size. The left ventricular systolic function is normal. LV ejection fraction is 55 to 60%. There is normal LV segmental wall motion. Doppler and Color Flow revealed no significant aortic regurgitation. There is no significant aortic valvular stenosis. Doppler and Color-flow revealed mild mitral regurgitation. Doppler and Color Flow revealed trace tricuspid regurgitation. Vein mapping lower extremity ultrasound: for PRE-OP CABG Vein Measurements Great Saphenous Small Saphenous Right Left Right Left Saph-Fem. Junction 3.60mm 2.80mm Proximal 1.80mm 1.70mm Mid Thigh 2.00mm 2.30mm Mid 2.00mm 2.90mm Distal Thigh 2.20mm 1.70mm Distal 2.80mm 2.20mm Proximal Calf 2.50mm 2.40mm Mid Calf 1.70mm 2.60mm Distal Calf 1.70mm 1.90mm Findings Patent bilateral greater and lesser saphenous veins with measurements as noted. Of note, cannot rule out a mild component of spasm in the bilateral greater and lesser saphenous veins. Critical Notification Critical Value: No <Conclusion> 1. Patent bilateral greater and lesser saphenous veins with mildly diminished caliber in the mid to distal segment of the vessels. Carotid doppler bilateral: for PRE-OP CABG Doppler Spectral Velocity Analysis Right Left pCCA 88/25 cm/s pCCA 144/27 cm/s mCCA 77/21 cm/s mCCA 101/24 cm/s dCCA 71/18 cm/s dCCA 95/27 cm/s Bulb 56/13 cm/s Bulb 70/22 cm/s ECA 160/ cm/s ECA 157/ cm/s pICA 73/26 cm/s pICA 75/27 cm/s Alexa 75/23 cm/s Alexa 79/29 cm/s dICA 105/38 cm/s dICA 79/29 cm/s Vert. 58/ cm/s Vert. 61/ cm/s Subcl. 71/ cm/s Subcl. 120/ cm/s ICA/CCA 1.19 ICA/CCA 0.55 Findings Grayscale images of the bilateral carotid vessels demonstrates mild to moderate diffuse atherosclerosis. No high-grade focal stenosis identified. Spectral waveforms and color Doppler of the bilateral common and internal carotid vessels demonstrate overall 0 to less than 50% stenosis based on velocity criteria. Mild elevation of velocities in the bilateral external carotid arteries are consistent with moderate 50 to 69% stenosis. Normal ICA to CCA ratios bilaterally. Normal antegrade vertebral velocities bilaterally. Normal subclavian velocities bilaterally Critical Notification Critical Value: No <Conclusion> 1. No significant carotid occlusive disease bilaterally Consults: Cardiology Problem list: Chest pain NSTEMI - 3 vessel CAD - to CABG referral Carotid Artery Disease - s/p CEA with vascular surgery in 2018 on right. 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 Kathrin Manzo Discharge Information Condition at Discharge: Improved Follow Up: Weeks Disposition/Orders: D/C to Another Facility Scheduled Aspirin (Aspirin) 81 Mg Tab.chew, 1 TAB PO HS for antiplatelet, #30 Ref 3 (Reported) Entered as Reported by: DERICK KHAN on 06/06/21537 Last Taken: Unknown Dose on 06/05/21 Last Action: Continued on 06/06/211209 by NIAL CASTMIKEY Bifidobacterium Infantis (Align) 4 Mg Capsule, 1 CAP PO DAILY for supplement for 30 Days, #30 Ref 0 (Reported) Entered as Reported by: DERICK KHAN on 06/06/21537 Last Action: Converted on 06/06/211209 by NIAAnitha CASTMIKEY Docosahexanoic Acid/Epa (Fish Oil Concentrate Softgel) 1 Each Capsule, 1 CAP PO DAILY for supplement for 30 Days, #30 Ref 0 (Reported) Entered as Reported by: DERICK KHAN on 06/06/21537 Last Action: Converted on 06/06/211209 by NIAAnitha CASTLE Hydrochlorothiazide (Hydrochlorothiazide Tablet) 12.5 Mg Tablet, 1 TAB PO DAILY, #30 Ref 5 (Reported) Entered as Reported by: GENARO KEATING on 05/19/17 1007 Last Action: Converted on 06/06/211209 by NIAL CASTLE Lisinopril (Lisinopril) 2.5 Mg Tablet, 1 TAB PO DAILY for high blood pressure, #30 Ref 5 (Reported) Entered as Reported by: DERICK KHAN on 06/06/21537 Last Action: Converted on 06/06/211209 by NIAL CASTLE Multivitamin With Minerals (Multivitamins With Minerals) 1 Each Tablet, 1 TAB PO DAILY for supplement for 30 Days, #30 Ref 0 (Reported) Entered as Reported by: DERICK KHAN on 06/06/21537 Last Action: Converted on 06/06/211209 by NIAL CASTLE Niacin (Inositol Niacinate) (Niacin 500 Mg Capsule) 500 Mg Capsule, 1 CAP PO DAILY for supplement for 30 Days, #30 Ref 0 (Reported) Entered as Reported by: DERICK KHAN on 06/06/21 0538 Last Action: Converted on 06/06/21 1210 by RODERICK WORLEY Justicifation of Admission Dx: Justifications for Admission: Justification of Admission Dx: Yes NEVAEH FELIZ MD Jun 09, 2021 14:28
[2021-06-09 15:10] VITALS: BP 147/81
[2021-06-09] MEDS ORDERED: METO25TA4 PO (15:12)
[2021-06-09] MEDS ORDERED: [UNRECOGNIZED DRUG - CODE] IV (15:12)
[2021-06-09] MEDS ORDERED: ATOR40TA59 PO (15:12)
--- NOTE | 2021-06-09 15:12 | SNU/HH DC ---
DISCHARGE ORDERS DISCHARGE INFORMATION: DISCHARGE DATE: Jun 09, 2021 FINAL DIAGNOSIS Problems Medical Problems: (1) Chest pain Status: Acute CONDITION ON DISCHARGE: Stable CODE STATUS: Code Status: Full POST DISCHARGE ORDERS: ACTIVITY ORDERS: Activity as tolerated WEIGHT BEARING STATUS: As tolerated DIET AFTER DISCHARGE: Cardiac CHECKS AFTER DISCHARGE: CHECKS AFTER DISCHARGE: Check blood press - daily, Check your Temp as needed, Weigh Yourself Daily DISCHARGE MEDICATIONS: Home Meds Active Scripts Atorvastatin Calcium (ATORVASTATIN CALCIUM) 40 Mg Tablet, 40 MG PO QHS for CAD/HLD for 30 Days, #30 TAB 5 Refills Prov:NEVAEH FELIZ MD 06/09/21 Metoprolol Tartrate (METOPROLOL TARTRATE) 25 Mg Tablet, 25 MG PO BID for CAD for 30 Days, #60 TAB 5 Refills Prov:NEVAEH FELIZ MD 06/09/21 Heparin Sod,Porcine/0.9 % NaCl (Heparin 2,500 Unit/250 ml-Ns) 2,500 Unit/250 Ml Iv.soln, 2500 UNIT IV CONT PRN PRN for CHEST PAIN for 7 Days, #7 MISC Prov:NEVAEH FELIZ MD 06/09/21 Reported Medications Multivitamin With Minerals (MULTIVITAMINS WITH MINERALS) 1 Each Tablet, 1 TAB PO DAILY for supplement for 30 Days, #30 TAB 0 Refills 06/06/21 Aspirin (ASPIRIN) 81 Mg Tab.chew, 1 TAB PO HS for antiplatelet, #30 TAB 3 Refills 06/06/21 Docosahexanoic Acid/Epa (FISH OIL CONCENTRATE SOFTGEL) 1 Each Capsule, 1 CAP PO DAILY for supplement for 30 Days, #30 CAP 0 Refills 06/06/21 Bifidobacterium Infantis (ALIGN) 4 Mg Capsule, 1 CAP PO DAILY for supplement for 30 Days, #30 CAP 0 Refills 06/06/21 Lisinopril (LISINOPRIL) 2.5 Mg Tablet, 1 TAB PO DAILY for high blood pressure, #30 TAB 5 Refills 06/06/21 Hydrochlorothiazide (HYDROCHLOROTHIAZIDE TABLET) 12.5 Mg Tablet, 1 TAB PO DAILY, #30 TAB 5 Refills 05/19/17 Discontinued Reported Medications Niacin (Inositol Niacinate) (NIACIN 500 MG CAPSULE) 500 Mg Capsule, 1 CAP PO DAILY for supplement for 30 Days, #30 CAP 0 Refills 06/06/21 NEVAEH FELIZ MD Jun 09, 2021 15:12
--- NOTE | 2021-06-09 16:20 | NUR ---
pt transferred via EMS to [facility] for further care. Patient took all belongings with him. Heparin gtt going at 12 mL/hr. Report called to [facility] nurse Qi.
[2021-06-09] MEDS ORDERED: ATORVASTATIN CALCIUM 40 MG TABLET. PO SCH (21:00)
== END 2021-06-09 15:40 | disposition short-term general hospital (02) | DRG 280 ==
LOC: ER 20:02 → 6 SOUTH 22:41 → OBSVTOIN 06-06 23:29
PROVIDERS: ADMIT Internal Medicine; ATTEND Internal Medicine
PROC: 4A023N7 Measurement of Cardiac Sampling and Pressure, Left Heart, Percutaneous Approach (ICD-10-PCS; principal; 2021-06-08)
PROC: B211YZZ Fluoroscopy of Multiple Coronary Arteries using Other Contrast (ICD-10-PCS; 2021-06-08)
PROC: B215YZZ Fluoroscopy of Left Heart using Other Contrast (ICD-10-PCS; 2021-06-08)
DX: I21.4 Non-ST elevation (NSTEMI) myocardial infarction (principal); I50.31 Acute diastolic (congestive) heart failure; C44.509 Unspecified malignant neoplasm of skin of other part of trunk; E78.5 Hyperlipidemia, unspecified; I25.10 Atherosclerotic heart disease of native coronary artery without angina pectoris; Z82.49 Family history of ischemic heart disease and other diseases of the circulatory system; Z95.1 Presence of aortocoronary bypass graft; Z88.2 Allergy status to sulfonamides; I11.0 Hypertensive heart disease with heart failure; Z20.822 Contact with and (suspected) exposure to COVID-19
CPT/HCPCS: 36415; 71045; 80048; 80053; 80061; 83880; 84484; 85025; 85027; 85520; 87426; 93005; 93306; 93458; 93880; 93970; 99152; 99153; C1894; G0378; G0379; J1644; J2250; J3010; J3490; J7030; Q9967; 99285-25

== ENCOUNTER → 2022-01-26 | Outpatient (CLI) | payer MEDICARE ==
[~2022-01-26] MED LIST changes: +0.9 % SODIUM CHLORIDE 10 ML DISP.SYRIN. IV ONE; +ASPI-630 PO; +ATOR40TA59 PO; +BIFI4CAP PO; +DOCO1CAP2 PO; +GADOTERATE 5 MMOL/10ML VIAL. INT ART ONE; +IOHEXOL 300 MG/ML 50 ML VIAL. INT ART ONE; +LIDOCAINE 1% Multi-Dose 20 ML VIAL. ID ONE; +LISI2.5T12 PO; +METO25TA4 PO; +MULT-114 PO; +NIAC500C6 PO; +[UNRECOGNIZED DRUG - CODE] IV
--- NOTE | 2022-01-26 16:29 | KCIC ---
EXAM: Right hip joint injection WITH Fluoroscopic guidance DATE: 01/26/2022 12:39 PM CLINICAL HISTORY: Reason: RT HIP PAIN SINCE 2019 S/P KARATE INJURY COMPARISON: None pertinent TECHNIQUE: The patient was informed of the indications and alternatives for this procedure as well as risks and benefits. No immediate contraindication identified. The patient provided informed, written consent. Laterality was confirmed by the entire team following a time out. Following initial Right hip joint localization, a suitable area was sterilely prepped and draped. Loc al anesthesia was administered with 1% xylocaine. With intermittent fluoroscopic observation, a 22-ga uge spinal needle was advanced into the Right hip joint sheath/capsule with confirmation of intra-syn ovial position with infusion of less than 1 cc iodinated contrast. Subsequent infusion 12 cc solution containing 10 cc saline, 5 cc lidocaine 1%, 5 cc Isovue and 0.1 cc gadolinium . Hemostasis with loca l pressure. Local clinical exam negative for immediate complication. Patient informed re local potential signs or symptoms that may indicate need to return to ER/Ordering physician for further evaluation. Patient informed re precautionary measures after intra-synovial in jection of anesthetic. Patient expressed understanding. Performing Physicians: Dr. Anne Levine Blood Loss: 0 cc Total Fluoroscopy time: 3 seconds Total spot images taken: 0 IMPRESSION: Successful intra-synovial injection Right hip joint with gadolinium contrast pre-MRI per clinical req uest. Electronically signed by: Ortiz Levine MD (01/26/2022 4:27 PM) [id number]
--- NOTE | 2022-01-27 08:29 | KCIC ---
EXAM: MR arthrogram Right hip DATE: 01/26/2022 4:58 PM INDICATION: right hip pain COMPARISON: None TECHNIQUE: Multiplanar, multisequence MR imaging of the right hip was performed following the adminis tration of intra-articular gadolinium contrast. FINDINGS: Fluid: Iatrogenic increase joint fluid without synovial nodularity or intra-articular loose body. Ne gative fluid distention of the greater trochanteric bursa. Intra-articular contrast extends into the iliopsoas bursa which extends to the level of the acetabular roof. Ligaments: Ligamentum teres is intact. Negative nodularity or thickening. Morphology: Normal proximal femoral angle, 129 degrees. Normal acetabular anteversion. Normal alpha angle, 41 degrees. Articular cartilage: Full-thickness cartilage defect posterior superior acetabulum with subchondral c ystic changes. Chondral thinning superiorly. Acetabular labrum: No definite labral tear is seen although the labrum is irregular at the posterior superior labrum. 2.5 x 1.1 cm multiloculated cystic structure is seen at the posterior-superior aceta bulum Periarticular tendons: Regional tendinous attachments are intact including hamstring, iliopsoas and g luteus medius tendons. Mild edema within the short adductors, low-grade strain. Bone marrow: Bone marrow signal is normal. Negative fracture or AVN. Visceral pelvis: Incomplete survey of marginal visceral structures of the pelvis. Grossly normal with out mass lesion or free intraperitoneal fluid. Negative large pelvic wall adenopathy. IMPRESSION: 1. Right hip joint osteoarthritis with chondral effacement and subchondral cystic change. 2. Mild irregularity posterior superior labrum with associated para labral cysts. Occult labral tear is suspected. 3. Mild edema within the short adductors, low-grade strain. Electronically signed by: Ortiz Levine MD (01/27/2022 8:27 AM) [id number]
== END | disposition home or self-care (01) ==
LOC: KCIC 12:29
PROVIDERS: ATTEND Student in an Organized Health Care Education/Training Program
DX: M25.551 Pain in right hip (principal); M16.11 Unilateral primary osteoarthritis, right hip; I10 Essential (primary) hypertension; Z79.82 Long term (current) use of aspirin; Z72.89 Other problems related to lifestyle; Z98.890 Other specified postprocedural states; Z88.2 Allergy status to sulfonamides
CPT/HCPCS: 27093; 73719; 77002; A9575; J3490; Q9967